=== PATIENT | female | born 1950 | race Caucasian/White ===

== ENCOUNTER 2016-10-02 14:57 | Emergency (ER) | payer BC, OTHER ==
[~2016-10-02] VITALS: Ht 154.9 cm; Wt 80.5 kg
[2016-10-02 15:00] VITALS: TEMP 36.7; Ht 154.9 cm; Wt 80.5 kg
[2016-10-02] MEDS ORDERED: HYDROCODONE/ACETAMOPHEN 5/325MG TAB PO STA (15:17)
[2016-10-02] MEDS ORDERED: ALG PO (15:36)
[2016-10-02] MEDS ORDERED: SYN150 PO (15:36)
[2016-10-02] MEDS ORDERED: TRAM-10 PO (15:36)
[2016-10-02] MEDS ORDERED: ESOM20CA PO (15:36)
[2016-10-02] MEDS ORDERED: AMLO-114 PO (15:36)
[2016-10-02] MEDS ORDERED: DICL-201 PO (15:36)
[2016-10-02] MEDS ORDERED: TRIA75TA53 PO (15:36)
--- NOTE | 2016-10-02 15:59 | EMERGENCY ROOM VISIT NOTE ---
ED Visit Note First contact with patient: 15:06 CHIEF COMPLAINT: knee pain HISTORY OF PRESENT ILLNESS: This 66-year-old female patient presents to the emergency department with her after sustaining an injury to the left knee. The patient denies any other injuries besides their knee. The patient reports mild swelling, denies any bruising. There is pain in the posterior and lateral aspect of the left knee. They rate the pain as aching/throbbing and 8/ 10. The patient states they are unable to walk on it due to pain, and any attempts to bear weight increase her pain. She is able to fully flex and extend the knee without pain. No numbness or tingling. No previous injuries to this knee, but she does note "bad arthritis" in both knees, and is in process of scheduling surgery for her right knee. No ankle, foot or hip pain. REVIEW OF SYSTEMS: A 6 system review of systems was completed with positives and pertinent negatives listed in the HPI. ALLERGIES: Penicillin MEDICATIONS: See chart PMH: See chart SOCIAL HISTORY: Denies tobacco, alcohol, recreational drugs. PHYSICAL EXAM: Vital Signs: Reviewed Nurse's notes, vital signs stable. GENERAL : Alert, no acute distress, well-developed, well-nourished. MENTAL STATUS: Alert, oriented to person place and time, and cooperative. MUSCULOSKELETAL: The left knee has an area of fullness and swelling in the posterior knee, tender to palpation. There is no ecchymosis. There is no joint effusion present. The patient is tender posterior and lateral knee. There is mild lateral joint line tenderness. The patella does not subluxate. Range of motion is normal. Strength of the quads and hamstrings is 5/5. Bronson's and Anterior Drawer tests are normal. There is no pain with varus and valgus stressing. The foot and toes are warm and well-perfused. Dorsalis pedis pulse 2+. Sensation to pain and light touch is intact. Capillary refill less than 2 seconds. IMAGING: LEFT KNEE 2 VIEWS HISTORY: left knee pain, eval injury/effusion COMPARISON: None. FINDINGS: There is no fracture or dislocation. Soft tissues are unremarkable. No radiopaque foreign bodies. No knee effusion. IMPRESSION: No fractures. LEFT LOWER EXTREMITY VENOUS DOPPLER HISTORY: left knee post pain, eval dvt, cyst COMPARISON STUDY: None. FINDINGS: There is normal compressibility, flow, and augmentation within the left lower extremity deep venous system. No evidence for a popliteal cyst. IMPRESSION: No DVT within the left lower extremity. EMERGENCY DEPARTMENT COURSE: I examined the patient. Differential diagnosis includes strain/sprain, ligamentous injury, Hein's cyst, DVT, less likely fracture or dislocation. The patient was given [place] tablet for pain. X-rays of the left knee were reviewed by myself and read by radiology and reveal no acute bony abnormality or soft tissue defect. Venous duplex of the left lower extremity negative for DVT, no evidence of cyst. The patient was placed in a knee immobilizer under my direction and the position was satisfactory. Patient had improved pain with immobilization and after [place]. The patient was instructed on the use of crutches. The patient was discharged home in good condition. Current/Historical Medications Scheduled Amlodipine (Norvasc), 10 MG PO QAM Bifidobacterium (Align), 4 MG PO QAM Diclofenac (Voltaren), 75 MG PO BID Esomeprazole Magnesium (Nexium), 20 MG PO QAM Levothyroxine Sodium (Synthroid), 150 MCG PO QAM Triamterene/Hctz (Maxzide 75MG/50MG), 1 TAB PO QAM Scheduled PRN Hydrocodone/Acetaminophen 5MG/325MG ([place] 5MG/325MG), 1-2 TABLET PO Q6H PRN for Pain Tramadol (Ultram), 50 MG PO Q8H PRN for Pain Allergies Coded Allergies: Penicillins (Verified Allergy, Unknown, ANAPHYLAXIS, 10/02/16) Vital Signs Date Time Temp Pulse Resp B/P Pulse Ox O2 Delivery O2 Flow Rate FiO2 10/02/16 18:07 76 20 153/88 96 10/02/16 15:00 36.7 84 20 162/83 99 Room Air Medications Administered Medications (Trade) Dose Ordered Sig/Romulo Route Start Time Stop Time Status Last Admin Dose Admin Acetaminophen/ Hydrocodone Bitart ([place] 5/325 Tab) 1 tab NOW STAT PO 10/02/16 15:17 10/02/16 15:19 DC 10/02/16 15:40 1 TAB Departure Information Impression Primary Impression: Posterior left knee pain Dispostion Home / Self-Care Condition GOOD Prescriptions Hydrocodone/Acetaminophen 5MG/325MG ([place] 5MG/325MG) Tab 1-2 TABLET PO Q6H Y for Pain for 3 Days, #24 TAB For Initial Treatment Prov: Aranza Nice CRNP 10/02/16 Referrals Wally Tracy M.D. (PCP) Patient Instructions My [facility] Additional Instructions Ice and elevate knee for swelling and pain. You may also try heat to the area after ice. Wear the knee immobilizer when up and about. Use crutches - minimal weight on foot. You may take Ibuprofen 600 mg or Tylenol 1000 mg every 8 hrs for pain. Do not take more than 3,000mg of Tylenol in a 24-hour period. [place] 1-2 tablet every 6 hrs for additional pain relief. Do not drink or drive while taking the [place], as it is a narcotic. Follow-up with your Orthopedist for further evaluation and treatment - call for appointment in the next week. Follow up with your family doctor or orthopedics if not improving in 5-7 days.
--- NOTE | 2016-10-02 16:06 | DIAGNOSTIC IMAGING REPORT ---
LEFT KNEE 2 VIEWS HISTORY: left knee pain, eval injury/effusion COMPARISON: None. FINDINGS: There is no fracture or dislocation. Soft tissues are unremarkable. No radiopaque foreign bodies. No knee effusion. IMPRESSION: No fractures. Electronically signed by: Jordi Parikh M.D. 10/02/2016 4:04 PM Dictated Date/Time: 10/02/2016 4:04 PM
--- NOTE | 2016-10-02 17:13 | DIAGNOSTIC IMAGING REPORT ---
LEFT LOWER EXTREMITY VENOUS DOPPLER HISTORY: left knee post pain, eval dvt, cyst COMPARISON STUDY: None. FINDINGS: There is normal compressibility, flow, and augmentation within the left lower extremity deep venous system. No evidence for a popliteal cyst. IMPRESSION: No DVT within the left lower extremity. Electronically signed by: Jordi Parikh M.D. 10/02/2016 5:12 PM Dictated Date/Time: 10/02/2016 5:11 PM
[2016-10-02] MEDS ORDERED: HYDR-5688 PO (17:23)
[2016-10-02 18:07] VITALS: BP 153/88; PULSE 76; O2SAT 96
[2016-12-05] MEDS ORDERED: SENNTAB23 PO (09:16)
[2016-12-05] MEDS ORDERED: ACET-1256 PO (09:16)
[2016-12-05] MEDS ORDERED: DIPH25CA5 PO (15:12)
[2016-12-17] MEDS ORDERED: ACET-24 PO (08:22)
[2016-12-17] MEDS ORDERED: RXC5 PO (08:22)
[2016-12-17] MEDS ORDERED: MORP-157 PO (08:22)
[2016-12-17] MEDS ORDERED: ASPEC325 PO (08:22)
== END 2016-10-02 18:09 | disposition home or self-care (01) ==
LOC: C.EDB 14:59 → C.EDD 18:09
DX: M25.562 Pain in left knee (principal); X58.XXXA Exposure to other specified factors, initial encounter; Z79.899 Other long term (current) drug therapy

== ENCOUNTER → 2016-10-11 | Outpatient (CLI) | payer BC ==
[~2016-10-11] MED LIST: ACET-1256 PO; ACET-24 PO; ALG PO; AMLO-114 PO; ASPEC325 PO; DICL-201 PO; DIPH25CA5 PO; ESOM20CA PO; MORP-157 PO; RXC5 PO; SENNTAB23 PO; SYN150 PO; TRAM-10 PO; TRIA75TA53 PO; voltaren
--- NOTE | 2016-10-11 16:40 | MAMMOGRAPHY REPORT ---
BILATERAL DIGITAL SCREENING MAMMOGRAM WITH CAD: 10/11/2016 CLINICAL HISTORY: Routine screening. Patient has no complaints. TECHNIQUE: Bilateral CC, MLO and CC nipple in profile views were obtained. Current study was also e valuated with a Computer Aided Detection (CAD) system. COMPARISON: Comparison is made to exams dated: 10/09/2015 mammogram, 10/07/2014 mammogram, 07/30/2013 mammogram, 07/10/2012 mammogram, 07/07/2011 mammogram, and 07/01/2010 mammogram - [facility]. BREAST COMPOSITION: The tissue of both breasts is almost entirely fatty. FINDINGS: There is a stable intramammary lymph node in the left upper outer posterior breast. No gray spicious mass, architectural distortion or cluster of microcalcifications is seen. IMPRESSION: ACR BI-RADS CATEGORY 1: NEGATIVE There is no mammographic evidence of malignancy. A 1 year screening mammogram is recommended. The p atient will receive written notification of the results. Approximately 10% of breast cancers are not detected with mammography. A negative mammographic repor t should not delay biopsy if a clinically suggestive mass is present. Ayala Ferguson M.D. ay/:10/11/2016 16:33:29 Jig Hand: Leanna PENA(Ezekiel)(Michelle)(BD), [facility] letter sent: Normal 1/2 BI-RADS Code: ACR BI-RADS Category 1: Negative
== END | disposition home or self-care (01) ==
LOC: C.MAMM 15:56
PROVIDERS: ATTEND Family Medicine
DX: Z12.31 Encounter for screening mammogram for malignant neoplasm of breast (principal)

== ENCOUNTER 2016-12-15 10:02 | Inpatient (IN) | payer BC, OTHER ==
[2016-12-05 08:50] VITALS: BMI 33.0
--- NOTE | 2016-12-05 09:28 | PAT Medication Instructions ---
Service Date Dec 05, 2016. Current Home Medication List Acetaminophen (Tylenol), 2 TAB PO Q4H PRN for Pain Amlodipine (Norvasc), 10 MG PO QAM Bifidobacterium (Align), 4 MG PO QAM Esomeprazole Magnesium (Nexium), 20 MG PO QAM Levothyroxine Sodium (Synthroid), 150 MCG PO QAM Sennosides-Docusate Sodium (Stool Softener), 1 TAB PO QAM Triamterene/Hctz (Maxzide 75MG/50MG), 1 TAB PO QAM Medication Instructions For Your Scheduled Surgery - Hold the following medications the morning of surgery: Sennosides-Docusate Sodium (Stool Softener), 1 TAB PO QAM Triamterene/Hctz (Maxzide 75MG/50MG), 1 TAB PO QAM Bifidobacterium (Align), 4 MG PO QAM - Take the following medications the morning of surgery with a sip of water OTHERWISE NOTHING TO EAT OR DRINK AFTER MIDNIGHT: Amlodipine (Norvasc), 10 MG PO QAM Esomeprazole Magnesium (Nexium), 20 MG PO QAM Levothyroxine Sodium (Synthroid), 150 MCG PO QAM Acetaminophen (Tylenol), 2 TAB PO Q4H PRN for Pain (may take if needed up to 4 hours prior to surgery) If you have any questions please call us at [phone] or [phone] or [phone]
[2016-12-05 10:03] LABS: BASO % 0.4 %; BASO ABS # 0.03 K/uL (0-0.2); COMPLETE YES; EOS % 6.8 %; HEMATOCRIT 41.8 % (37-47); IG% 0.4 %; LYMPH % 26.8 %; LYMPH ABS # 2.18 K/uL (1.2-3.4); MEAN CELL VOLUME 83.9 fL (80-100); MEAN CORPUSCULAR HEMOGLOBIN 28.5 pg (25-34); MEAN PLATELET VOLUME 10.1 fL (7.4-10.4); MONO % 9.1 %; NEUT % 56.5 %; PLATELET COUNT 250 K/uL (130-400); RED BLOOD COUNT 4.98 M/uL (4.2-5.4); WHITE BLOOD COUNT 8.14 K/uL (4.8-10.8)
--- NOTE | 2016-12-05 10:07 | DIAGNOSTIC IMAGING REPORT ---
CHEST PREADMISSION(PA/LAT) CLINICAL HISTORY: Preoperative chest COMPARISON STUDY: No previous studies for comparison. FINDINGS: The cardiac and mediastinal contours are normal. There is no evidence of focal pulmonary consolidation. There is no evidence of failure. No pleural effusions are visualized.[ IMPRESSION: No active disease in the chest. Electronically signed by: Per Ruggiero M.D. 12/05/2016 10:06 AM Dictated Date/Time: 12/05/2016 10:06 AM
[2016-12-05 10:19] LABS: PROTHROMBIN TIME (PATIENT) 10.5 SECONDS (9.0-12.0)
[2016-12-05 10:57] LABS: BUN/CREATININE RATIO 23.7 (10-20); CALCIUM 9.3 mg/dl (8.5-10.1); CREATININE 0.87 mg/dl (0.60-1.20)
--- NOTE | 2016-12-11 18:37 | HISTORY & PHYSICAL EXAMINATION ---
DATE OF ADMISSION: 12/15/2016 CHIEF COMPLAINT: Right knee pain and discomfort. 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 She has got a long history of bilateral knee pain and discomfort, right side greater than left. This dates back to several years ago. She has been followed by Dr. Knight, my partner. She has had injections in her knee which provided her with some temporary relief. It has become less successful over time. Pain has become more debilitating. The last shot has not helped as much. She takes Celebrex and Mobic at different times which have worked minimally recently. Now currently taking diclofenac. She now would like to proceed with surgical treatment. Her walking tolerance is limited. She has nighttime discomfort. PAST MEDICAL HISTORY: Include 1. Hypertension. 2. Elevated cholesterol. 3. Hypothyroidism. 4. Gastroesophageal reflux disease. 5. Mild obesity with a BMI of 33.5. 6. Low back pain. 7. Sciatica. PAST SURGICAL HISTORY: Include 1. Tubal ligation. 2. Tonsillectomy. 3. Thyroidectomy. 4. Right knee arthroscopy. 5. Cholecystectomy. ALLERGIES: PENICILLIN WHICH IS APPARENTLY A TRUE ANAPHYLACTIC REACTION. SHE DOES OKAY WITH KEFLEX, BUT MAYBE A QUESTION OF A RASH. CURRENT MEDICINES: Include 1. Voltaren twice a day. 2. Nexium once a day. 3. Stool softener. 4. Hydrochlorothiazide. 5. Amlodipine. 6. Synthroid. SOCIAL HISTORY: This 66?year-old white female patient from [place]. She is an RN. Medical doctor is Dr. Wally Tracy. FAMILY HISTORY: Noncontributory. REVIEW OF SYSTEMS: Negative for diabetes, neurologic problems, vascular problems, bleeding disorders. Denies any chest pain. No shortness of breath. No history of DVT or PE. PHYSICAL EXAMINATION: GENERAL: Shows a pleasant, middle-aged female. Looks to be in pretty good health. HEENT: Benign. NECK: Supple. No lymphadenopathy. LUNGS: Clear to auscultation. HEART: Has a regular rate and rhythm. ABDOMEN: Soft, nontender, nondistended. EXTREMITIES: Grossly neurovascularly intact except as follows: Examination of the right knee reveals the patient walks slight varus alignment to her knee. She has got a small varus thrust with weightbearing. She has got well-healed portal sites. A small knee effusion. She has got bony hypertrophy medially. Range of motion is 5-120. No instability. X-RAYS: X-rays of the right knee reviewed. She has advanced right knee DJD. She has got complete loss of her medial joint space. She has got some subchondral sclerosis and a little bit of tibial femoral subluxation. 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 Unresponsive to conservative treatment, and would like to have her right knee replaced. PLAN: We will take her to the operating room and do a right knee replacement. Risks and benefits of this procedure were explained to the patient including but not limited to DVT, PE, , infection, neurologic injury, vascular injury, bleeding problem, pain, limited range of motion, stiffness, failure to relieve her symptoms, incomplete relief of symptoms, need for further surgery in the future, fracture, leg length inequality, nerve palsy, etc. The patient understands and desires to proceed. Informed consent was obtained. The patient had preoperative workup which was negative. She knows to hold her Voltaren 10 days preop. She does have this REACTION TO PENICILLIN AND A LITTLE REACTION TO KEFLEX, will likely give her vancomycin preoperatively. As far as discharge plans, she is planning to be discharged to home using [facility] home health program. Her can assist in her care. AMBROSIO
[2016-12-15] VITALS (8 sets, daily range): BP systolic 129–165; BP diastolic 74–85; PULSE 69–85; TEMP 36.5–37; O2SAT 93–99; Ht 157.5 cm; Wt 83.0 kg
[~2016-12-15] VITALS: Ht 157.5 cm; Wt 83.0 kg
[~2016-12-15 10:02] MED LIST changes: -ACET-24 PO; +ACETAMINOPHEN 500 MG TAB PO SCH; -ASPEC325 PO; +BND25 PO; +BUPIVACAINE 0.25% 30 ML VIAL ONE; +BUPIVACAINE 0.5 % 5 MG/1 ML PF 10ML VIAL ONE; +BUPIVACAINE LIPOSOME 266 MG, BUPIVACAINE/EPINEPHRINE INJ 50 ML, SODIUM CHLORIDE 0.9% PF... INFIL SCH; -DICL-201 PO; -DIPH25CA5 PO; +FAMOTIDINE 20 MG TAB PO SCH; +GABAPENTIN 300 MG CAP PO SCH; +LACTATED RINGER'S 1000ML 1,000 ML IV SCH; +LACTATED RINGER'S 1000ML 500 ML IV ONE; +LACTATED RINGER'S 1000ML IV SCH; +METOCLOPRAMIDE HCL 10 MG TAB PO SCH; -MORP-157 PO; -RXC5 PO; +SCOPOLAMINE 1.5 MG TDSY TD SCH; -TRAM-10 PO; +TRANEXAMIC ACID INJ 1,000 MG in SODIUM CHLORIDE 0.9% 100ML 100 ML IV SCH; +VANCOMYCIN INJ 1,250 MG in SODIUM CHLORIDE 0.9% 250ML 250 ML IV SCH; -voltaren
[2016-12-15] MEDS ORDERED: voltaren (10:24)
--- NOTE | 2016-12-15 10:53 | History & Physical Bridge Note ---
H&P Re-Evaluation Bridge Note: I have examined the patient, reviewed the History & Physical and in the interval since the performance of the History & Physical I have noted the following changes of clinical significance: No changes noted
[2016-12-15] MEDS ORDERED: MIDAZOLAM HCL 1 MG/ML 2ML VIAL ONE ×2 (11:07→12:52)
[2016-12-15] MEDS ORDERED: FENTANYL CITRATE INJ 50 MCG/1 ML 2 ML VIAL ONE (11:07)
[2016-12-15] MEDS ORDERED: BACITRACIN 50000 UNIT VIAL ONE (11:54)
[2016-12-15] MEDS ORDERED: BUPIVACAINE/EPINEPHRINE 0.5% MPF 1:200,000 10 ML VIAL ONE (11:54)
[2016-12-15] MEDS ORDERED: BUPIVACAINE LIPOSOME 1/3% 266 MG/20 ML VIAL INFIL ONE (12:59)
[2016-12-15] MEDS ORDERED: BUPIVACAINE/EPINEPHRINE 0.25% 1:200,000 30 ML VIAL ONE (13:00)
[2016-12-15] MEDS ORDERED: SODIUM CHLORIDE 0.9% PF 50 ML VIAL ONE (13:02)
[2016-12-15] MEDS ORDERED: PROPOFOL IV EMULSION 10 MG/ML 20 ML VIAL IV ONE (13:55)
[2016-12-15] MEDS ORDERED: ONDANSETRON INJ 2 MG/ML 2 ML VIAL ONE (13:55)
[2016-12-15] MEDS ORDERED: LIDOCAINE HCL 2% 2 ML VIAL (20MG/ML) ONE (13:55)
[2016-12-15] MEDS ORDERED: GLYCOPYRROLATE INJ 0.2 MG/ML VIAL ONE (13:55)
[2016-12-15] MEDS ORDERED: DEXAMETHASONE SOD INJ 4 MG/ML VIAL ONE (13:55)
--- NOTE | 2016-12-15 14:33 | [facility] Post Operative Brief Note ---
Immediate Operative Summary Operative Date Dec 15, 2016. Pre-Operative Diagnosis Right knee degnerative joint disease Post-Operative Diagnosis same Procedure(s) Performed Right Total Knee Arthroplasty Surgeon Dr. Wes Bull Manager Coding Surgeon(s) Sameer Zuleta PA-C Estimated Blood Loss 50 ml Findings Right Knee DJD Fluids (cc crystalloids) 1600 cc Specimens a. right knee bone and tissue Drains None Anesthesia Spinal Complication(s) None Disposition Recovery Room / PACU
[2016-12-15] MEDS ORDERED: ALUMINUM/MAGNESIUM/SIMETH (MAALOX MAX) 30 ML UDC PO PRN (14:45)
[2016-12-15] MEDS ORDERED: ONDANSETRON INJ 2 MG/ML 2 ML VIAL IV PRN (14:45)
[2016-12-15] MEDS ORDERED: MAGNESIUM HYDROXIDE SUSP 30 ML UDC PO PRN (14:45)
[2016-12-15] MEDS ORDERED: METOCLOPRAMIDE HCL INJ 5 MG/ML 2 ML VIAL IV PRN (14:45)
[2016-12-15] MEDS ORDERED: BISACODYL 10 MG SUPP PR PRN (14:45)
[2016-12-15] MEDS ORDERED: SILVER SULFADIAZINE 1% CR 50 GM JAR EXT PRN (14:45)
[2016-12-15] MEDS ORDERED: ZOLPIDEM TARTRATE 5 MG TAB PO PRN (14:45)
--- NOTE | 2016-12-15 15:33 | Anesthesiology Progress Note ---
Anesthesia Post Op Note Date & Time Dec 15, 2016 at 15:33 Vital Signs Pain Intensity: 0 Vital Signs Past 12 Hours Date Time Temp Pulse Resp B/P (MAP) Pulse Ox O2 Delivery O2 Flow Rate FiO2 12/15/16 15:21 37 124/77 12/15/16 15:20 78 20 90 12/15/16 15:20 78 20 12/15/16 15:16 128/71 12/15/16 15:15 82 23 93 12/15/16 15:15 82 23 12/15/16 15:11 134/73 12/15/16 15:10 81 16 96 12/15/16 15:10 82 16 12/15/16 15:06 128/63 12/15/16 15:05 72 9 99 12/15/16 15:05 71 9 12/15/16 15:01 105/88 12/15/16 15:00 74 11 12/15/16 15:00 73 11 98 12/15/16 14:56 124/70 12/15/16 14:55 81 17 98 12/15/16 14:55 80 17 12/15/16 14:51 122/64 12/15/16 14:50 76 13 12/15/16 14:50 77 13 98 12/15/16 14:46 130/65 12/15/16 14:45 83 15 98 12/15/16 14:45 82 15 12/15/16 14:42 110/77 12/15/16 14:40 86 19 12/15/16 14:40 86 19 100 12/15/16 14:38 115/66 12/15/16 14:35 36.9 84 16 115/66 99 Mask 10 12/15/16 10:31 99 Room Air 12/15/16 10:30 36.5 76 18 165/76 Notes Mental Status: alert / awake / arousable, participated in evaluation Pt Amnestic to Procedure: Yes Nausea / Vomiting: adequately controlled Pain: adequately controlled Airway Patency, RR, SpO2: stable & adequate BP & HR: stable & adequate Hydration State: stable & adequate Anesthetic Complications: no major complications apparent
--- NOTE | 2016-12-15 15:33 | DIAGNOSTIC IMAGING REPORT ---
RIGHT KNEE 1 OR 2 VIEWS ROUTINE CLINICAL HISTORY: 66 years-old Female presenting with AP/LATERAL IN PACU RIGHT KNEE Right. TECHNIQUE: Frontal and lateral views of the right knee were obtained. COMPARISON: None. FINDINGS: Postsurgical findings of total right knee arthroplasty with patellar resurfacing. Expected soft tissue and intra-articular gas. Surgical drain in place grade Overlying skin lisset noted. No acute fracture or hardware complication. No malalignment. IMPRESSION: Expected postoperative findings status post total right knee arthroplasty with patellar resurfacing. Electronically signed by: Linus Reeder M.D. 12/15/2016 3:31 PM Dictated Date/Time: 12/15/2016 3:29 PM
[2016-12-15] MEDS: CHECK SCOPOLAMINE PATCH PLACEMENT SCH ×2 (16:00→23:17)
--- NOTE | 2016-12-15 16:06 | OPERATIVE REPORT ---
DATE OF OPERATION: 12/15/2016 SURGEON: Dr. Wes Bull. PHARMACY ASSISTANT: SUNIL Arredondo PREOPERATIVE DIAGNOSIS: Right knee degenerative joint disease. POSTOPERATIVE DIAGNOSIS: Same. PROCEDURE PERFORMED: Right cemented posterior stabilized total knee arthroplasty. COMPLICATIONS: None. ESTIMATED BLOOD LOSS: 50 mL. FLUID REPLACEMENT: 1600 mL crystalloid fluid replacement. ANESTHESIA: Spinal with adductor canal block. DRAINS: None. SPECIMENS: Right knee sent for pathology. TOURNIQUET TIME: 56 minutes at 300 mmHg. 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 She has been through extensive conservative treatment including knee arthroscopy in the past. The pain has been unresponsive to conservative management. X-rays showed advanced medial compartment DJD. The patient elected to proceed with operative treatment. OPERATIVE FINDINGS: Operative findings revealed advanced right knee DJD with grade 4 bone disease of the medial femoral condyle and medial tibial plateau. She had some fairly diffuse grade 4 changes in the patellofemoral joint as well. The lateral compartment was fairly well preserved. She had a flexion contracture of 10-15 degrees and a large knee joint effusion. OPERATIVE IMPLANTS: Operative implants consisted of: 1. A Biomet Vanguard size 65 right posterior stabilized femoral component. 2. A Biomet size 67 tibial tray. 3. A 10 mm posterior stabilized polyethylene insert. 4. A 31 x 8 all poly patella. OPERATIVE PROCEDURE: The patient taken to the operating room, identified and placed on the operating table in supine position. All contact areas were appropriately padded. IV antibiotics were provided by anesthesia team. A spinal anesthetic and adductor canal block had been provided in the holding area. Zambrano catheter was placed in sterile fashion. A right thigh tourniquet was then placed and the right lower extremity was then prepped and draped in the usual sterile fashion. The right leg was elevated and exsanguinated with Esmarch and tourniquet was placed at 300 mmHg. An anterior approach to the right knee was then performed through a longitudinal incision centered over the patella. Sharp dissection was carried through the subcutaneous tissues and down to the level of the extensor mechanism. A medial parapatellar arthrotomy incision was made. Some subperiosteal dissection was carried out medially. The fat pad was resected from beneath the patellar tendon. The lateral patellofemoral ligament was released. The patella was everted and knee was flexed. The osteophytes were taken off the distal femur. The ACL and PCL were then released from the distal femur and the tibia subluxated anteriorly. The external tibial alignment jig was then placed in the anterior face of the tibia and adjusted 14 mm medially. Proximal tibial cut was made to remove about 2 mm of bone from the most deficient aspect of the posteromedial tibial plateau. This did take a fairly large piece off laterally. The tibia was sized to a size 67. Attention was then drawn to the femur. The distal femur was entered with a sharp drill. Intramedullary canal was suctioned. A right 5 degree valgus cutting guide was placed. Distal femoral cutting block was pinned in place. Distal femoral cut was made to take an additional 3 mm of bone off the distal femur. The femur was then sized to a size 65. We did downsize this entire size to the very narrow medial/lateral dimensions of the femur. The AP cutting block was then pinned parallel to the epicondylar axis, which was 4 degrees of external rotation. The anterior cut, anterior chamfer, posterior cut, posterior chamfer cuts were made. Box cutting guide was placed and adjusted slightly laterally. The box cut was made. The knee was flexed. The remnants of the medial and lateral menisci were excised. The osteophytes were taken off the posterior aspect of the femur. Trial femoral component was placed. Tibial tray was pinned in maximum external rotation and drill and stem punch were used to create defect in proximal tibia for the tibial tray. The knee was then trialed. The 10 insert seemed just a little bit loose, but the 12, I felt was too tight, especially with her flexion contracture preoperatively so we did elect to use the 10 spacer. I wanted to leave the knee a little looser than too tight. Attention was then drawn to the patella. The patella was cleaned of all soft tissues. Patella thickness measured 23 mm, cut down to 14. It was sized to a size 31 patella. Lug holes were drilled for a 31 patella. Lateral osteophyte was removed. Patella button was placed. Knee was taken through range of motion and the patella tracked nicely with no thumbs test. Attention was then drawn toward placement of permanent components. All trial components were removed. A bone plug was placed in the distal femur to limit blood loss. A double batch of Palacos G cement was mixed. A right size 65 posterior stabilized femoral component, size 67 tibial tray, a 10 mm posterior stabilized polyethylene insert, and a 31 x 8 all poly patella then cemented in place. Knee was brought out into full extension until cement hardened. A final cement check was then performed. Pericapsular tissues were injected with a total of 100 mL of a combination of 20 mL of Exparel, 30 mL of normal saline, 50 mL of 0.25% Marcaine with epinephrine. The tourniquet was then let down for final tourniquet time of 56 minutes. Hemostasis was assured with use of electrocautery. The wound was once again irrigated. The extensor mechanism was then closed with a combination of #1 PDS suture and #1 Vicryl suture in a [id number] fashion. Extensor mechanism was checked and found to be intact. The subcutaneous tissues were then closed with 2-0 Dexon suture in a buried interrupted fashion. Skin was closed with skin lisset. The leg was then cleaned and dried and a sterile dressing of Xeroform, 4 x 4, sterile cast padding and Donell bandage were applied. The patient was then transferred to the recovery room in stable condition. The patient tolerated the procedure well with no complications. All needle and sponge counts were correct at the end of the operation. I attest to the content of the Intraoperative Record and any orders documented therein. Any exceptions are noted below. [facility]
[2016-12-15] MEDS: OXYCODONE HCL IR 5 MG TAB (IMMEDIATE RELEASE) PO PRN ×2 (17:08→21:09)
[2016-12-15] MEDS: D5W AND 1/2NSS + 20MEQ KCL 1,000 ML IV SCH (17:27)
[2016-12-15] MEDS: FERROUS GLUCONATE 324 MG TAB PO SCH (17:45)
[2016-12-15] MEDS: KETOROLAC TROMETHAMINE 15 MG/ML VIAL IV. SCH ×2 (17:47→23:17)
[2016-12-15] MEDS: HYDROmorphone INJ 0.5 MG/0.5 ML SYR IV PRN ×2 (17:48→19:52)
[2016-12-15] MEDS ORDERED: TRANEXAMIC ACID INJ 1,000 MG in SODIUM CHLORIDE 0.9% 100ML 100 ML IV SCH (21:00)
[2016-12-15] MEDS: TAPENTADOL ER 50 MG TABCR PO SCH (21:08)
[2016-12-15] MEDS: DOCUSATE SODIUM 100 MG CAP PO SCH (21:09)
[2016-12-15] MEDS: SENNA 8.6 MG TAB PO SCH (21:10)
[2016-12-15] MEDS: ASPIRIN 325 MG ECTAB PO SCH (21:10)
[2016-12-15] MEDS: ACETAMINOPHEN 500 MG TAB PO SCH (21:11)
[2016-12-16] MEDS ORDERED: VANCOMYCIN INJ 1,250 MG in SODIUM CHLORIDE 0.9% 250ML 250 ML IV SCH (01:00)
[2016-12-16] MEDS: D5W AND 1/2NSS + 20MEQ KCL 1,000 ML IV SCH ×2 (02:28→11:44)
[2016-12-16 03:34] VITALS: BP 126/73; PULSE 74; TEMP 36.9; O2SAT 95
[2016-12-16] MEDS: KETOROLAC TROMETHAMINE 15 MG/ML VIAL IV. SCH ×3 (05:31→18:24)
[2016-12-16] MEDS: LEVOTHYROXINE 150 MCG TAB PO SCH (05:31)
[2016-12-16] MEDS: ACETAMINOPHEN 500 MG TAB PO SCH ×3 (05:32→21:31)
[2016-12-16 05:45] LABS: MEAN CELL VOLUME 84.6 fL (80-100); MEAN CORPUSCULAR HEMOGLOBIN 28.4 pg (25-34); MEAN CORPUSCULAR HGB CONC 33.5 g/dl (32-36); PLATELET COUNT 206 K/uL (130-400); RED BLOOD COUNT 4.02 M/uL (4.2-5.4); WHITE BLOOD COUNT 13.07 K/uL (4.8-10.8)
[2016-12-16 06:09] LABS: BUN/CREATININE RATIO 20.3 (10-20); CREATININE 0.66 mg/dl (0.60-1.20); POTASSIUM 3.5 mmol/L (3.5-5.1)
[2016-12-16] MEDS: CHECK SCOPOLAMINE PATCH PLACEMENT SCH ×2 (07:34→16:00)
[2016-12-16 07:36] VITALS: BP 146/84; TEMP 36.8; O2SAT 96
--- NOTE | 2016-12-16 07:40 | PROGRESS NOTE ---
DATE: 12/16/2016 SUBJECTIVE: 66-year-old white female postop day #1 from right knee replacement. She is doing well. Pain is very well controlled. Had a good night's sleep. No chest pain or shortness of breath. Not feeling dizzy or lightheaded. OBJECTIVE: VITAL SIGNS: Temperature 36.9. Vital signs stable. PHYSICAL EXAMINATION: GENERAL: Reveals a healthy pleasant, middle-aged female. She is sitting up in bed and looks comfortable. She is dressed in her clothes and ready to go for the day. EXTREMITIES: Examination of the right leg reveals the dressing to be clean, dry and intact. She can dorsiflex and plantarflex her foot appropriately. She is neurologically intact. LABORATORY DATA: Hemoglobin 11.4, hematocrit 34.0. Electrolytes are stable. ASSESSMENT: 66-year-old female postop day 1 from right knee replacement, doing well. Pain is controlled. She is neurologically intact. PLAN: 1. DVT prophylaxis including thigh-high TEDs, SCDs, and aspirin twice a day. 2. PT/OT. Weightbearing as tolerated. Right total knee protocol. 3. Pain control, doing well with current pain regimen. 4. Disposition: Plan to discharge to home with some home health once adequately recovered.
--- NOTE | 2016-12-16 07:48 | Anesthesiology Progress Note ---
Anesthesia Post Op Note Date & Time Dec 16, 2016 at 07:47 Vital Signs Vital Signs Past 12 Hours Date Time Temp Pulse Resp B/P (MAP) Pulse Ox O2 Delivery O2 Flow Rate FiO2 12/16/16 07:36 36.8 16 146/84 (104) 96 Room Air 12/16/16 07:00 Room Air 12/16/16 03:34 36.9 74 16 126/73 (90) 95 Room Air 12/15/16 23:21 Room Air 10.0 12/15/16 23:13 36.9 74 16 139/76 (97) 94 Room Air Notes Mental Status: alert / awake / arousable, participated in evaluation Pt Amnestic to Procedure: Yes Nausea / Vomiting: adequately controlled Pain: adequately controlled Airway Patency, RR, SpO2: stable & adequate BP & HR: stable & adequate Hydration State: stable & adequate Neuraxial Anesthesia: sensory block resolved Anesthetic Complications: no major complications apparent
[2016-12-16] MEDS: FERROUS GLUCONATE 324 MG TAB PO SCH ×3 (08:23→18:24)
[2016-12-16] MEDS: DOCUSATE SODIUM 100 MG CAP PO SCH ×2 (08:24→21:13)
[2016-12-16] MEDS: DOCUSATE SODIUM/SENNA 50/8.6MG TAB PO SCH (08:24)
[2016-12-16] MEDS: MULTIVITAMIN TAB PO SCH (08:24)
[2016-12-16] MEDS: PANTOprazole SOD 40 MG TAB PO SCH (08:25)
[2016-12-16] MEDS: ASPIRIN 325 MG ECTAB PO SCH ×2 (08:25→21:13)
[2016-12-16] MEDS: AMLODIPINE BESYLATE 5 MG TAB PO SCH (08:25)
[2016-12-16] MEDS: TAPENTADOL ER 50 MG TABCR PO SCH ×2 (08:29→21:12)
[2016-12-16] MEDS: OXYCODONE HCL IR 5 MG TAB (IMMEDIATE RELEASE) PO PRN ×2 (08:29→18:32)
[2016-12-16] MEDS ORDERED: BIFIDOBACTERIUM PO SCH (09:00)
[2016-12-16] MEDS ORDERED: PANTOprazole SOD 40 MG TAB PO SCH (09:00)
[2016-12-16 10:13] VITALS: O2SAT 96
[2016-12-16 12:08] VITALS: BP 146/84; PULSE 68; TEMP 36.8; O2SAT 96
[2016-12-16 15:48] VITALS: BP 147/80; PULSE 78; TEMP 37
[2016-12-16] MEDS: HYDROmorphone INJ 0.5 MG/0.5 ML SYR IV PRN (19:40)
[2016-12-16] MEDS: SENNA 8.6 MG TAB PO SCH (21:31)
[2016-12-16 22:55] VITALS: BP 152/79; PULSE 81; TEMP 37.3; O2SAT 97
[2016-12-17] MEDS: CHECK SCOPOLAMINE PATCH PLACEMENT SCH
[2016-12-17] MEDS: KETOROLAC TROMETHAMINE 15 MG/ML VIAL IV. SCH ×2 (00:15→06:00)
[2016-12-17] MEDS: OXYCODONE HCL IR 5 MG TAB (IMMEDIATE RELEASE) PO PRN ×2 (02:33→07:53)
[2016-12-17] MEDS: ACETAMINOPHEN 500 MG TAB PO SCH (06:00)
[2016-12-17] MEDS: LEVOTHYROXINE 150 MCG TAB PO SCH (06:01)
[2016-12-17 06:08] VITALS: BP 173/89; PULSE 73; TEMP 37; O2SAT 97
[2016-12-17 06:35] VITALS: BP 142/81
[2016-12-17 07:35] VITALS: TEMP 37; O2SAT 97
[2016-12-17] MEDS: FERROUS GLUCONATE 324 MG TAB PO SCH (07:52)
[2016-12-17] MEDS: PANTOprazole SOD 40 MG TAB PO SCH (07:52)
[2016-12-17] MEDS: MULTIVITAMIN TAB PO SCH (07:52)
[2016-12-17] MEDS: AMLODIPINE BESYLATE 5 MG TAB PO SCH (07:53)
[2016-12-17] MEDS: DOCUSATE SODIUM/SENNA 50/8.6MG TAB PO SCH (07:53)
[2016-12-17] MEDS: TAPENTADOL ER 50 MG TABCR PO SCH (07:53)
[2016-12-17] MEDS: ASPIRIN 325 MG ECTAB PO SCH (08:17)
[2016-12-17] MEDS: DOCUSATE SODIUM 100 MG CAP PO SCH (08:17)
[2016-12-17] MEDS ORDERED: ACET-24 PO (08:22)
[2016-12-17] MEDS ORDERED: RXC5 PO (08:22)
[2016-12-17] MEDS ORDERED: ASPEC325 PO (08:22)
[2016-12-17] MEDS ORDERED: MORP-157 PO (08:22)
--- NOTE | 2016-12-17 08:24 | Discharge Instructions ---
Discharge Instructions Date of Service Dec 17, 2016. Admission Reason for Admission: Right Knee Degenerative Joint Disease Discharge Discharge Diagnosis / Problem: Right Knee Replacement Discharge Goals Goal(s): Decrease discomfort, Improve function, Increase independence, Improve disease control, Therapeutic intervention Activity Recommendations Activity Limitations: per Instructions/Follow-up section Weightbearing Status: Right weightbearing . Instructions / Follow-Up Instructions / Follow-Up ACTIVITY RECOMMENDATIONS: Physical Therapy: * You will go to physical therapy three times each week for four to six weeks after your surgery in order to regain your knee range of motion and to retrain your knee to work properly. * It is just as important to make sure you are getting your knee perfectly straight as it is to regain your knee bend. * Taking a pain pill an hour before therapy can help you have a more productive and comfortable therapy session. Home Exercise: * You were shown a series of exercises (heel props, heel slides, etc.) in the hospital. Do these exercises three to four times each day including the exercises you were shown in physical therapy. Walking: * Get up and walk several times each day. For the first four weeks, try not to stand or walk for more than one hour at a time. If you do stand or walk for more than one hour, you will not hurt anything, but your knee and leg will likely swell. * As you feel comfortable, you may change from the walker or crutches to a cane and then to independent walking. MEDICATIONS: New Medicine: * You will likely be taking one or more of these medications: 1. MS Contin - A long-acting pain medication. Take 1 tablet twice a day for the first ten days to decrease your baseline level of pain. 2. Oxycodone - A quick and shorter-acting pain medication. Take one to two tablets every four to six hours to lessen your pain. 3. Aspirin - Thins your blood to lessen the chance of forming a blood clot. * The most common side effects of pain medicine and iron are nausea and constipation. If nausea or constipation is too much of a problem or if you have any questions about your new medicines or doses, call [facility] at . We will try to help you manage these issues. VERY IMPORTANT TO READ AND REVIEW" Pain: * The immediate post-operative period after knee replacement surgery is often quite painful. * You are given a prescription for pain medicine. You should take it, as directed, when you need it, especially before physical therapy and before going to bed. Pain that interferes with sleep is very common and can last several months. * You will likely need pain medicine for the first four to six weeks. It will not stop all of the pain. The pain will lessen and as you feel better, you may change to milder pain medicine such as Tylenol. * The most common side effects of pain medicine are nausea and constipation, so don't take more than you need. SPECIAL CARE INSTRUCTIONS: TEDs/Elastic Stockings: * The white elastic stockings help limit swelling and prevent blood clots from forming in your legs. The more you wear them, the more they work. * Wear them for six weeks after knee replacement surgery and four weeks after partial knee replacement. Prevention of Infection: * Take antibiotics one hour before any dental cleaning, dental work, urological procedure, gastrointestinal procedure or any invasive surgery in order to prevent your new joint from getting infected. * You may get the antibiotics from the doctor performing the procedure or you may call our office at before and we will call in a prescription to the pharmacy of your choice. Things to Watch For: * Drainage from the incision site that occurs more than one week after your surgery. * Severely increased knee/leg pain or swelling. * Increased redness at the incision site. * Fever above 102 degrees Fahrenheit. * Unusual chest pain or shortness of breath. * Unusual pain or burning with urination. Call [facility] at with any of the above problems or if you have any questions about your medicines or recovery. FOLLOW UP VISIT: Make an appointment to see your doctor for approximately two weeks after surgery for a progress check and staple removal by calling the office at . Current Hospital Diet Patient's current hospital diet: Regular Diet Discharge Diet Recommended Diet: Regular Diet Procedures Procedures Performed: Right Total Knee Arthroplasty Pending Studies Studies pending at discharge: no Medical Emergencies . Who to Call and When: Medical Emergencies: If at any time you feel your situation is an emergency, please call [phone] immediately. . Non-Emergent Contact Non-Emergency issues call your: Surgeon . "Provider Documentation" section prepared by Wes Bull. . VTE Core Measure Inpt VTE Proph given/why not?: Other Anticoagulation, T.E.D. Stockings, SCD's
[2016-12-17 09:34] VITALS: BP 155/79; PULSE 79; O2SAT 97
--- NOTE | 2016-12-17 10:47 | PROGRESS NOTE ---
DATE: 12/17/2016 DATE: 12/17/2016 SUBJECTIVE: A 66-year-old white female postop day 2 from a knee replacement. She is doing pretty well. Pain is controlled. Therapy went reasonably well. She is a little bit more sore today than yesterday. No chest pain or shortness of breath. Not feeling dizzy or lightheaded. OBJECTIVE: VITAL SIGNS: Temperature 37.0. Vital signs stable. PHYSICAL EXAMINATION: GENERAL: Reveals a pleasant, middle-aged female. She is sitting up in bed and looks pretty comfortable. LUNGS: Clear to auscultation. HEART: Regular rate and rhythm. ABDOMEN: Soft, nontender, nondistended. EXTREMITY EXAMINATION: Grossly neurovascularly intact except as follows: Examination of the right knee reveals dressing to be clean, dry and intact. No significant drainage. Leg is well aligned. The patient can dorsiflex and plantarflex her foot appropriately. She is neurologically intact. ASSESSMENT: A 66-year-old white female postop day 2 from a right knee replacement, doing pretty well. Pain is controlled. She is neurologically intact. PLAN: 1. DVT prophylaxis including thigh-high TEDs, SCDs, and aspirin twice a day. 2. PT/OT. Weightbearing as tolerated. Right total knee protocol. 3. Pain control. Doing well with current pain regimen. 4. Disposition. Plan to discharge to home with some home health once adequately recovered.
--- NOTE | 2016-12-28 16:01 | DISCHARGE SUMMARY ---
ADMITTING PHYSICIAN AND SURGEON: Dr. Bull. ADMITTING DIAGNOSIS: Right knee degenerative joint disease. SURGERY PERFORMED: Right total knee. SECONDARY DIAGNOSES: Hypertension, elevated cholesterol, hypothyroidism, gastroesophageal reflux disease, mild obesity, low back pain, sciatica. CONSULTS: None obtained. HISTORY AND PHYSICAL EXAMINATION: Well documented in the patient's chart. HOSPITAL COURSE: The patient was admitted on 12/15/2016 underwent total knee arthroplasty, tolerated the procedure well. There were no complications. She was transferred to the PACU postoperatively and later to the orthopedic floor for further care. She was given vancomycin for antibiotic prophylaxis, AGUSTIN stockings, SCDs and aspirin for DVT prophylaxis. Hemoglobin, hematocrit and vital signs were monitored during her hospital stay and remained stable. She did not require any blood transfusions. There were no complications. By postoperative day 2, she was tolerating a general diet, pain was controlled with oral pain medicine. She was participating in physical therapy and had no signs or symptoms of deep vein thrombosis. On postop day 2, she was discharged home and set up with home health services. She was given printed discharge instructions including prescriptions for extra strength Tylenol, aspirin 325 mg b.i.d., oxycodone. Continue her home medicines. Continue physical therapy, weightbearing as tolerated, AGUSTIN stockings. Follow up in 10-12 days or sooner if any problems or concerns.
== END 2016-12-17 11:48 | disposition home health service (06) | DRG 470 ==
LOC: C.ACU 10:02 → C.3E 10:15 → ENRESERV 15:43
PROVIDERS: ADMIT Orthopaedic Surgery Sports Medicine; ATTEND Orthopaedic Surgery Sports Medicine
PROC: 0SRC0J9 Replacement of Right Knee Joint with Synthetic Substitute, Cemented, Open Approach (ICD-10-PCS; principal; 2016-12-15 12:15)
DX: M17.11 Unilateral primary osteoarthritis, right knee (principal); I10 Essential (primary) hypertension; E03.9 Hypothyroidism, unspecified; K21.9 Gastro-esophageal reflux disease without esophagitis; E66.9 Obesity, unspecified; Z68.33 Body mass index [BMI] 33.0-33.9, adult

== ENCOUNTER → 2017-10-12 | Outpatient (CLI) | payer BC ==
[~2017-10-12] MED LIST changes: +ACET-24 PO; -ACETAMINOPHEN 500 MG TAB PO SCH; +ASPEC325 PO; -BND25 PO; -BUPIVACAINE 0.25% 30 ML VIAL ONE; -BUPIVACAINE 0.5 % 5 MG/1 ML PF 10ML VIAL ONE; -BUPIVACAINE LIPOSOME 266 MG, BUPIVACAINE/EPINEPHRINE INJ 50 ML, SODIUM CHLORIDE 0.9% PF... INFIL SCH; +DIPH25CA5 PO; -FAMOTIDINE 20 MG TAB PO SCH; -GABAPENTIN 300 MG CAP PO SCH; -LACTATED RINGER'S 1000ML 1,000 ML IV SCH; -LACTATED RINGER'S 1000ML 500 ML IV ONE; -LACTATED RINGER'S 1000ML IV SCH; -METOCLOPRAMIDE HCL 10 MG TAB PO SCH; +RXC5 PO; -SCOPOLAMINE 1.5 MG TDSY TD SCH; -TRANEXAMIC ACID INJ 1,000 MG in SODIUM CHLORIDE 0.9% 100ML 100 ML IV SCH; -VANCOMYCIN INJ 1,250 MG in SODIUM CHLORIDE 0.9% 250ML 250 ML IV SCH; +voltaren
--- NOTE | 2017-10-13 15:18 | MAMMOGRAPHY REPORT ---
BILATERAL DIGITAL SCREENING MAMMOGRAM TOMOSYNTHESIS WITH CAD: 10/12/2017 CLINICAL HISTORY: Routine screening. Patient has no complaints. TECHNIQUE: Breast tomosynthesis in addition to standard 2D mammography was performed. Current study was also evaluated with a Computer Aided Detection (CAD) system. COMPARISON: Comparison is made to exams dated: 10/11/2016 mammogram, 10/09/2015 mammogram, 10/07/2014 m ammogram, 07/30/2013 mammogram, 07/10/2012 mammogram, and 07/07/2011 mammogram - [facility] enter. BREAST COMPOSITION: The tissue of both breasts is almost entirely fatty. FINDINGS: No suspicious masses, calcifications, or areas of architectural distortion are noted in ei ther breast. There has been no significant interval change compared to prior exams. IMPRESSION: ACR BI-RADS CATEGORY 1: NEGATIVE There is no mammographic evidence of malignancy. A 1 year screening mammogram is recommended. The pa tient will receive written notification of the results. Approximately 10% of breast cancers are not detected with mammography. A negative mammographic report should not delay biopsy if a clinically suggestive mass is present. Kiah Patel M.D. /:10/12/2017 16:46:56 Secretary Receptionist: Hattie PENA(Ezekiel)(M), [facility] letter sent: Normal 1/2 BI-RADS Code: ACR BI-RADS Category 1: Negative
== END | disposition home or self-care (01) ==
LOC: C.MAMM 15:58
PROVIDERS: ATTEND Family Medicine
DX: Z12.31 Encounter for screening mammogram for malignant neoplasm of breast (principal)

== ENCOUNTER 2025-03-13 06:36 | Observation (INO) ==
--- NOTE | 2025-03-05 09:16 | Anesthesiology Consultation ---
Date of Service March 05, 2025 Assessment & Plan (1) Encounter for pre-operative examination: - Infectious disease screening: Per assessment on 03/05/25- No known recent infectious disease contacts or current infectious disease symptoms. - Outpatient joint assessment: Pt currently scheduled for inpatient pathway. If surgeon requests review for outpatient joint pathway, patient is not a recommended candidate for outpatient joint program from anesthesia standpoint based on available information. - S/P Left reverse TSA (01/26/24): LMA#4 + regional at [facility]. No issues noted per post-op anesthesia progress note. - Pulmonary visit (07/08/24): "She plans to get right shoulder surgery.. She had x-ray done preopnormal.. She had PFT done todaynormal.. She has very rare use of rescue inhaler.. It appears she does have a mild persistent asthma component clinically.. Her shortness of breath is also seems to be improved with management of her arrhythmia.. After summer 2021 COVID infection she has long-haul symptoms of dyspnea.. Does not have symptoms of PE.. Multiple pulmonary nodules have been present for greater than 5 years and are all less than 6 to 8 mm in size and have not grown.. History of tuberculosis as a child for which she was treated.." - Awaiting most recent cardiology visit note ([facility] cardio/Dr. Alcaraz). Patient is otherwise acceptable risk for surgery pending evaluation DOS. Chart Review Chart Review: Patient NOT seen in Pre Admission Testing History Surgery Operation Date: 03/13/25 10:40 Proposed Procedures p Left Total Knee Arthroplasty - Wes Bull MD Height/Weight Height: 5 ft Weight: 79.832 kg Allergies Allergy/AdvReac Type Severity Reaction Status Date / Time Penicillins Allergy Severe Anaphylaxis Verified 03/05/25 09:14 fluvastatin AdvReac Severe Joint Pain Verified 03/05/25 07:29 rosuvastatin AdvReac Severe Joint Pain Verified 03/05/25 07:29 Medications Home Medications Medication Instructions Recorded Confirmed Last Taken aspirin 81 mg chewable tablet 81 mg PO QAM 12/02/20 03/05/25 01/19/24 (Aspirin Childrens) esomeprazole magnesium 20 mg 20 mg PO QAM 12/02/20 03/05/25 01/26/24 05:00 capsule,delayed release (Nexium) fluticasone furoate 200 1 inh inhalation QAM 12/02/20 03/05/25 01/26/24 05:00 mcg-vilanterol 25 mcg/dose inhalation powder (Breo Ellipta) levothyroxine 137 mcg capsule 137 mcg PO QAM 12/02/20 03/05/25 01/26/24 05:00 xisgzyctadzs-cqemzcii-hxagoz tablet 1 tab PO QAM 12/02/20 03/05/25 01/25/24 08:00 polyethylene glycol 3350 17 17 g PO DAILY 12/02/20 03/05/25 01/25/24 08:00 gram/dose oral powder (Miralax) pravastatin 20 mg tablet 20 mg PO QAM 12/02/20 03/05/25 01/26/24 05:00 triamterene 75 1 tab PO QAM 12/02/20 03/05/25 01/25/24 08:00 mg-hydrochlorothiazide 50 mg tablet (Maxzide) diltiazem HCl 360 mg 360 mg PO QA 05/08/23 03/05/25 01/26/24 05:00 capsule,extended release 24 hr flecainide 150 mg tablet 75 mg PO Q12H 05/08/23 03/05/25 01/26/24 05:00 losartan 50 mg tablet 50 mg PO BID 05/08/23 03/05/25 01/25/24 18:00 metoprolol succinate 25 mg 25 mg PO QA 12/11/23 03/05/25 01/26/24 05:00 tablet,extended release 24 hr acetaminophen 500 mg tablet 500 mg PO Q6H PRN Pain 03/05/25 03/05/25 Unknown albuterol sulfate 90 mcg/actuation 2 puff inhalation UD PRN asthma 03/05/25 03/05/25 Unknown aerosol inhaler cephalexin 500 mg capsule 500 mg PO UD PRN dental procedures 03/05/25 03/05/25 Unknown docusate sodium 100 mg capsule 300 - 400 mg PO DAILY 03/05/25 03/05/25 Unknown (Stool Softener) Past Medical History Medical History Asthma Stable per pt, only uses albuterol PRN r/t humidity Follows with [facility] Jan pulmonary/Dr. Pereyra Calcified granuloma of lung Follows at [facility] pulmonary Chronic back pain "stable" Claustrophobia Degenerative disc disease GERD (gastroesophageal reflux disease) History of COVID-19 (2020) Following black mold PNA in 2020 Patient currently follows with pulmonary [facility], hx glass opacity via CXR (per patient) that was scar tissue from having TB as a child (treated). Hx of tuberculosis Age 2, treated at the time No current issues Denies new or changed cough, shortness of breath, night sweats or unexplained weight loss. Hyperlipidemia Hypertension Hypothyroidism Osteoarthritis of left knee PVCs (premature ventricular contractions) Controlled with Flecainide Follows with Dr. Alcaraz/[facility] Tinnitus Had viral infection 04/2024 (which is when tinnitus started)- had unremarkable MRI evalulation/workup Past Family History Family History Other No family history of adverse response to anesthesia Past Surgical History Surgical History History of anesthesia reaction During last shoulder surgery 01/2024, patient reports "lost control of her bladder" x 24 hours, "had minimal b/l pleural effusions and felt as though was oversedated" had difficulty waking patient up on way home from surgery- felt possibly r/t versed- was also very nauseated Has concerns with this surgery as far as receiving anesthesia again (previously had never had a reaction) History of arthroplasty of both shoulders (2023) R/L History of bilateral tubal ligation (1979) History of bronchoscopy Early (r/t having TB as a child/believe she has scar tissue from TB) History of cardiac cath (2012) [facility], no stents History of carpal tunnel release Left History of cataract surgery R/L, wtih lens implants History of cholecystectomy History of colonoscopy History of thyroidectomy, subtotal Right partial removal d/t thyroid nodule History of tonsillectomy (1955) History of total abdominal hysterectomy and bilateral salpingo-oophorectomy (2021) Hx of esophagogastroduodenoscopy S/P bladder repair (2021) Bladder lift- during REX/BSO S/P total knee replacement (2018) Right Social History Smoking Status: Never smoker Do You Dip or Chew Tobacco: No Hx Alcohol Use: No Hx Substance Use: No substance use type: does not use Lab Results Anesthesia Preop Results Results Anesthesia Widget: WBC 9.08 K/ul (4.8-10.8) 02/20/25 Hgb 14.6 g/dl (12.0-16.0) 02/20/25 Hct 42.9 % (37.0-47.0) 02/20/25 Plt 239 K/uL (130-400) 02/20/25 Na 138 mmol/L (136-145) 02/20/25 K 3.9 mmol/L (3.5-5.1) 02/20/25 Cl 103 mmol/L (98-107) 02/20/25 CO2 28 mmol/L (21-32) 02/20/25 BUN 26 mg/dl (6-23) H 02/20/25 Creat 0.92 mg/dl (0.6-1.2) 02/20/25 Glucose Level 117 mg/dl (70-99(Fasting)) H 02/20/25 PT 10.4 Seconds (9.0-12.0) 02/20/25 PTT 27 Seconds (21-31) 02/20/25 INR 1.0 (0.9-1.1) 02/20/25 Blood Type O Positive 02/20/25 Antibody Screen NEGATIVE 02/20/25 Testing Electrocardiogram Date: 02/20/25 SB at 58bpm. iRBBB. No significant change compared to 05/16/2023 per information scientist comparison. Chest X-Ray Date: 02/20/25 FINDINGS: Stable small hiatal hernia. Heart size and pulmonary vasculature are normal. There are bilateral shoulder prostheses. No consolidation or pleural effusion. IMPRESSION: No acute findings. Echocardiogram Date: 11/08/21 EF 60-65% No LV regional wall motion abnormalities Grade I diastolic dysfunction No significant valvular pathology Stress Test Date: 04/10/20 Pharmacologic MPHR 55% No reversible or fixed ischemia Myocardial perfusion appears normal
--- NOTE | 2025-03-13 06:47 | History & Physical Bridge Note ---
Date of Service March 13, 2025 History & Physical Bridge Note I have examined the patient, reviewed the History & Physical and in the interval since the performance of the History & Physical I have noted the following changes of clinical significance: no changes noted
[2025-03-13] MEDS: FAMOTIDINE 20 MG TAB PO SCH (07:00)
[2025-03-13] MEDS: CeleBREX 200 MG CAP PO SCH (07:00)
[2025-03-13] MEDS: METOCLOPRAMIDE HCL 10 MG TABLET PO SCH (07:00)
[2025-03-13] MEDS: dexAMETHasone**PF** 10 MG/ML VIAL IV SCH (07:00)
[2025-03-13] MEDS: LR 500ML BOLUS, THEN 15ML/HR IV SCH (07:00)
[2025-03-13] MEDS: LR 60ML/HR IV SCH (07:00)
[2025-03-13] MEDS: ACETAMINOPHEN 500 MG TAB PO SCH ×2 (07:00→13:34)
[2025-03-13] MEDS ORDERED: ROPIVACAINE 0.5% 5 MG/ML 30 ML VIAL ONE (07:04)
[2025-03-13] MEDS ORDERED: BUPIVACAINE 0.5 % 5 MG/1 ML PF 10ML VIAL ONE (07:04)
[2025-03-13] MEDS ORDERED: PROPOFOL IV EMULSION 10 MG/ML 20 ML VIAL IV ONE ×2 (07:46)
[2025-03-13] MEDS ORDERED: MIDAZOLAM HCL 1 MG/ML 2ML VIAL ONE (07:46)
[2025-03-13] MEDS ORDERED: LIDOCAINE 2% 2 ML VIAL/AMP(20MG/ML) INFIL ONE (07:46)
[2025-03-13] MEDS ORDERED: ONDANSETRON INJ 2 MG/ML 2 ML VIAL IV PRN ×2 (08:10→13:21)
[2025-03-13] MEDS ORDERED: ATROPINE SULFATE 0.1 MG/ML 10ML SYR IV PRN (08:10)
[2025-03-13] MEDS ORDERED: Nursing to Pharmacy Communication SCH (08:15)
[2025-03-13] MEDS ORDERED: ONDANSETRON INJ 2 MG/ML 2 ML VIAL ONE (09:43)
[2025-03-13] MEDS: ORTHO JOINT ANESTHETIC ONE (09:56)
[2025-03-13] MEDS: ROPIV 0.5% 246mg, Ketorolac 30mg, EPINEPHrine 0.5mg in NSS INFIL SCH (09:56)
--- NOTE | 2025-03-13 11:18 | Operative Report ---
PG Post Operative Report Pre & Post Diagnosis Operation Date: 03/13/25 08:50 Pre-Op Diagnosis: Left Knee Osteoarthritis Post-Op Diagnosis: Left Knee Osteoarthritis I identified the patient and participated in the time-out.: Yes Procedure Operation Date: 03/13/25 08:50 Actual Procedures p Left Total Knee Arthroplasty(Left) - Wes Bull MD Surgeon Wes Bull MD Bowling Ball Marker Lázaro Phelan PA-C Estimated Blood Loss 50 Findings Consistent with Post-Op Diagnosis Specimens Left knee sent for pathology Anesthesia Type Spinal MAC Complications none Disposition Accompanied Patient To Recovery: No Indications Patient is a 74-year-old female has a history of multiple orthopedic joint problems and issues and status post multiple replacements. She had her right right knee replaced in the past. Over the past several years she developed increased pain discomfort in her left knee. X-rays show advanced left knee arthritis. She elected proceed with left total knee arthroplasty. Description of Procedure Operative implants consist of: 1 Biomet Vanguard size 62.5 left posterior stabilized femoral component. 2. Biomet size 67 tibial tray. 3. 10 mm posterior stabilized polyethylene insert. 4. 31 x 8 all poly patella. The patient was taken to the op room, identified, placed on the operating table in the supine position. All contact areas were appropriately padded. IV antib iotics were provided by anesthesia team. A spinal anesthetic had been implemented holding area. Zambrano catheter was placed in sterile fashion. A left IJ was then placed. Left lower extremity was then prepped and draped in usual sterile fashion. The left leg was elevated exsanguinated with use of an Esmarch and a tourniquet placed at 300 mmHg. An anterior approach to the left knee was then performed through a longitudinal incision centered over the patella. Sharp dissection was Through subcutaneous tissue down the extensor mechanism. A medial parapatellar arthrotomy incision was made. Some subperiosteal dissection was carried out medially. The fat pad was resected from the patella tendon. The lateral patellofemoral ligament was released. Patella subluxated laterally knee was flexed. The osteophytes taken off distal femur. The ACL and PCL were then released from the distal femur and the tibia subluxated anteriorly. The external tibial LYMErix then placed in the anterior face of the tibia and adjusted 14 mm medially. The proximal tibial cut was made essentially flush with the most deficient aspect medial tibial plateau. Some osteophytes taken off medially. The tibia was sized to a size 67. Attention drawn the femur. The distal femur was entered with a sharp drill. Intramedullary canal was suction. A left 5 degree valgus cutting guide was placed. The distal femoral cutting block was pinned in place. This femoral cut was made take an additional 3 mm of bone off distal femur. The femur was then sized to a size 62.5. The AP cutting block was pinned parallel to the epicondylar axis which was 4 degrees of external rotation. The anterior cut, anterior chamfer, posterior cut, posterior chamfer cuts were made. The box cutting guide was placed and just slightly lateral and the box cut was made. The knee was flexed. The remnants of the medial and lateral menisci were excised. The osteophytes were taken off the posterior aspect of femur. A trial femoral component was placed. The tibial tray was then pinned in Yael external rotation and the drill and stem punch used. The defect in proximal tibia for the tibial tray. The knee was then trialed and the 10 mm insert fit most appropriately. Attention drawn the patella. The patella was cleaned of all soft tissue. Patella thickness measured 22 mm in thickness was cut down to 13. Was sized to a size 31 patella. The lug holes were drilled for 31 patella. The lateral osteophyte was removed. Patella button was placed. Knee was taken through range of motion patella tracked nicely with no thumbs test. Attention then drawn to place the permanent components. All trial components were removed. Bone plug was placed into distal femoral mL blood loss. A double batch Palacos G cement was mixed. Biomet Vanguard size 62.5 left posterior stabilized femoral component, a size 67 tibial tray, a 10 mm Po stabilized polyethylene insert, and a 31 x 8 all poly patella then cemented in place. The knee was brought out into full extension till cement hardened. Final cement check was then performed. Pericapsular tissues were injected with a total of 100 cc of Ortho mix. The patient did receive 1 g tranexamic acid. The tourniquet was then let down for final tourniquet time of 59 minutes. Hemostasis surgery was electrocautery. The wound was once again irrigated and the extensor mechanism then closed with combination of #1 PDS suture #1 Vicryl suture in a [id number]-kfvav fashion. Extensor Meclomen checked found to be intact. Subcutaneous tissue then closed with 2 Dexon suture in a buried interrupted fashion skin was closed skin lisset. Leg was then cleaned and dried and a sterile dressing with Xeroform, 4 fours, sterile cast padding, Donell bandage were applied. The patient was then transferred to the recovery room in stable condition. Patient tolerated procedure well and there were no complications. Lázaro Phelan, my physician oceanographer assistant, was present for the entire procedure. His assistance was required for proper patient positioning, prepping and draping, surgical exposure, retraction, performed the technical details of the operation, closure of the incision site, and placement of the postoperative sterile dressing and bandage. I attest to the content of the Intraoperative Record and any orders documented therein. Any exceptions are noted below.
--- NOTE | 2025-03-13 11:31 | XRay Report ---
XR knee LT 1 or 2V routine CLINICAL HISTORY: Surgical Post Op COMPARISON: None FINDINGS: There are postsurgical changes of a total left knee arthroplasty and patellar resurfacing. There are overlying skin lisset. There is gas present within the soft tissues consistent with recen t surgery. IMPRESSION: Postsurgical changes of a total left knee arthroplasty. ACT 112: Negative or not required by law. Electronically signed by: Per Ruggiero M.D. 03/13/2025 11:30 AM
--- NOTE | 2025-03-13 12:19 | Anesthesiology Progress Note ---
Date of Service March 13, 2025 Anesthesia Post Procedure Vital Signs Vital Signs: Temp Pulse Resp BP BP Pulse Ox O2 Del Method 03/13/25 12:05 97.7 F 62 14 128/68 99 Room Air 03/13/25 11:55 62 16 133/60 98 Room Air 03/13/25 11:45 63 14 134/65 92 Room Air 03/13/25 11:35 64 16 135/59 L 98 Room Air 03/13/25 11:25 66 16 140/63 99 Oxymask 03/13/25 11:13 97.2 F L 66 14 141/61 H 98 Oxymask 03/13/25 07:09 97.9 F 58 L 24 188/77 H 195/92 H 97 Room Air O2 Flow Rate 03/13/25 12:05 03/13/25 11:55 03/13/25 11:45 03/13/25 11:35 03/13/25 11:25 3 03/13/25 11:13 6 03/13/25 07:09 Pain Intensity Left Knee: Pain Intensity: 8 Transfer of Care Handoff Completed per policy Notes Mental Status: alert / awake / arousable and participated in evaluation Patient Amnestic to Procedure: Yes Nausea / Vomiting: adequately controlled Pain: adequately controlled Airway Patency, RR, SpO2: stable & adequate BP & HR: stable & adequate Hydration State: stable & adequate Neuraxial Anesthesia: was administered and sensory block is resolving Anesthetic Complications: no major complications apparent and Pt Satisfied with anesthetic care
[2025-03-13] MEDS ORDERED: ALBUTEROL HFA 8 GM INHALER INH PRN (13:21)
[2025-03-13] MEDS ORDERED: METOCLOPRAMIDE HCL INJ 5 MG/ML 2 ML VIAL IV PRN (13:21)
[2025-03-13] MEDS ORDERED: NALOXONE HCL 0.4 MG/1 ML VIAL/CARP IV PRN (13:21)
[2025-03-13] MEDS ORDERED: ALUMINUM/MAGNESIUM SUSP 30 ML UDC PO PRN (13:21)
[2025-03-13] MEDS ORDERED: MAGNESIUM HYDROXIDE SUSP 30 ML UDC PO PRN (13:21)
[2025-03-13] MEDS ORDERED: HYDROmorphone INJ 0.5 MG/0.5 ML SYR IV PRN (13:21)
[2025-03-13] MEDS: SODIUM CHLORIDE 0.9% 1,000 ML IV SCH (13:29)
[2025-03-13] MEDS: KETOROLAC TROMETHAMINE 15 MG/ML VIAL IV SCH (13:37)
[2025-03-13] MEDS: ASCORBIC ACID 500 MG TAB PO SCH (15:59)
[2025-03-13] MEDS: TRANEXAMIC ACID / 0.7% NACL 1,000 MG/100 ML BAG IV SCH (16:07)
[2025-03-13] MEDS ORDERED: SENNA 8.6 MG TAB PO SCH (21:00)
[2025-03-13] MEDS: DOCUSATE SODIUM 100 MG CAP PO SCH (21:21)
[2025-03-13] MEDS: SENNA 8.6 MG TAB PO SCH (21:21)
[2025-03-13] MEDS: FLECAINIDE ACETATE 100 MG TABLET PO SCH (21:21)
[2025-03-13] MEDS: ASPIRIN 81 MG ECTAB PO SCH (21:22)
[2025-03-13] MEDS: LOSARTAN POTASSIUM 50 MG TAB PO SCH (21:22)
[2025-03-14] MEDS: LEVOTHYROXINE SODIUM 137 MCG TABLET PO SCH (05:59)
[2025-03-14] MEDS: MULTIVITAMIN TAB PO SCH (07:44)
[2025-03-14] MEDS: TRIAMTERENE/HCTZ 37.5/25MG TAB PO SCH (07:45)
[2025-03-14] MEDS: METOPROLOL SUCC 25MG EXT REL TAB PO SCH (07:45)
[2025-03-14] MEDS: PRAVASTATIN SOD 20 MG TAB PO SCH (07:45)
[2025-03-14] MEDS: POLYETHYLENE (MIRALAX) 17 GM PACK PO SCH (07:46)
[2025-03-14] MEDS: dexAMETHasone 10 MG in SYRINGE 0 ML IV SCH (07:46)
[2025-03-14] MEDS: CEROVITE ADV FORMULA TAB PO SCH (07:46)
[2025-03-14] MEDS: POLYETHYLENE (MIRALAX) 17 GM PACK ONE (07:47)
--- NOTE | 2025-03-14 08:32 | Orthopedic Progress Note ---
Date of Service March 14, 2025 Assessment & Plan (1) Status post total left knee replacement: * Continue Current Treatment * Disposition: home with home therapy * Daily treatment: Physical Therapy/ Occupational Therapy per protocol * Weight bearing status: Full WBAT * Continue to monitor for ABLA * Pain control * DVT prophylaxis, ASA * Office/hospital f/u 2 weeks for progress check and staple/suture removal * Plan for discharge today pending PT/OT clearance Subjective Active Problems: S/p left total knee arthroplasty POD 1 74 y/o female s/p left total knee arthroplasty with Dr. Bull. Doing well overall, pain managed and improved function. Denies fever/chills, chest pain/SOB, nausea/vomiting. Otherwise no complaints and no pain. Review of Systems All systems reviewed & are unremarkable except as noted in HPI & below. Physical Exam * General: Alert and oriented, no acute distress * Constitutional: well-developed, well-nourished. * Respiratory: Normal respiratory effort, no distress * Gastrointestinal: No tenderness to palpation, no rigidity or guarding. * Skin: No rash or lesion. * Neurologic: Grossly normal * Musculoskeletal: Left knee surgical dressing clean, dry and in place, not removed for exam. Otherwise no obvious deformity or overlying skin changes RLE. Diffuse TTP distal thigh and knee region. Otherwise no specific tender ness of proximal thigh, lower leg, foot/ankle. AROM knee flexion 80 degrees. AROM foot/ankle intact. Sensation intact plantar/dorsal foot. Brisk capillary refill. . Results & Data Results & Data Laboratory Results Laboratory Results - last 24 hr 03/13/25 06:50 Blood Type O Positive Antibody Screen NEGATIVE . Diagnostic Findings . Knee X-Ray 03/13/25 11:11 XR knee LT 1 or 2V routine CLINICAL HISTORY: Surgical Post Op COMPARISON: None FINDINGS: There are postsurgical changes of a total left knee arthroplasty and patellar resurfacing. There are overlying skin lisset. There is gas present within the soft tissues consistent with recent surgery. IMPRESSION: Postsurgical changes of a total left knee arthroplasty. ACT 112: Negative or not required by law. Electronically signed by: Per Ruggiero M.D. 03/13/2025 11:30 AM PG Care Time/CCT Total # of Minutes Spent Total Time Spent with Patient: Total time spent is greater than 50% in coordination of care (as documented) at patient's floor/unit and/or counseling patient: Coding Level of Care Code 65787 Post Operative Follow-Up Diagnoses Status post total left knee replacement Z96.652
[2025-03-14] MEDS: FLUTICASONE/VILANTEROL 200/25MCG 14 PUFFS/INHALER INH SCH (10:14)
== END 2025-03-14 10:46 | disposition home health service (06) ==
LOC: ASU 06:36 → 3E 06:36

== ENCOUNTER 2025-04-09 12:16 | Inpatient (IN) ==
--- NOTE | 2025-04-09 13:35 | Emergency Department Note ---
Impression & Plan Status post knee replacement, Hypokalemia, KEVAN (acute kidney injury), Hyponatremia, Elevated procalcitonin ED Provider Note NAME: BUDDY HARRISON AGE: 74 SEX: F : 1950 ARRIVES VIA: Walk-In INFORMANT: The patient herself. ED PROVIDER(S): Joann Phelan PA-C, [Lita Moreno MD] CHIEF COMPLAINT: DrAddis Mosley, IV fluids, rational need HISTORY OF PRESENTING ILLNESS: The patient is a 74-year-old female with a [facility] left total knee replacement by Dr. Bull on 03/13, almost 1 month ago, who presents to the emergency department after being evaluated by her primary care provider today. She reports of flulike symptoms that began 5 days ago where she was experiencing chills and sweats. Yesterday she developed a rash on her left lower extremity that stretches from her left hip down to her toes. The area is warm and red. She reports a small amount of tenderness in the posterior aspect of her knee/calf. She denies a fever, vomiting, chest pain, shortness of breath, abdominal pain, pain in the left knee, or sign of infection around the incision site prior to rash. Labs were obtained at the primary care office and reports that the patient's sodium is low. Patient denies history of blood clots. She is on baby aspirin. She was referred here. REVIEW OF SYSTEMS: See HPI for pertinent positives and pertinent negatives. ALLERGIES: Penicillin, fluvastatin, rosuvastatin MEDICATIONS: See below PAST MEDICAL HISTORY: See below PHYSICAL EXAM: VITALS: Vitals are noted on the nurses note and reviewed by myself. Vital signs stable. GENERAL: 74-year-old female, in no acute distress, nondiaphoretic, well- developed well-nourished. SKIN: Capillary refill less than 2 seconds. The entirety of the left lower extremity is erythematous, maculopapular blanching rash, the area is nontender. The rash is along the anterior lateral aspect of the leg and less on the posterior aspect. No blisters or ulcerations. Healing incision site without dehiscence. No purulent drainage. HEENT: Normocephalic. PERRLA. EOMI. Nares patent. Mucous membranes moist. Neck is supple without nuchal rigidity. HEART: Regular rate and rhythm without murmurs gallops or rubs. LUNGS: CTA BL without wheezes, rales or rhonchi. No retractions or accessory muscle use. ABDOMEN: Soft, nontender, without masses or organomegaly. No guarding or rebound tenderness. MUSCULOSKELETAL: Left knee full range of motion. No joint effusion. No pedal edema. No calf tenderness. NEURO: Patient was alert and oriented to person place and time. No focal neurological deficits. DIFFERENTIAL DIAGNOSIS: Cellulitis, erysipelas, allergic reaction, contact dermatitis, irritant dermatitis, viral exanthem, postop infection, septic joint, among others. ED COURSE AND MEDICAL DECISION MAKING: MEDICATIONS GIVEN: Normal saline 500 ml, potassium chloride 10 meq PO, potassium chloride 10 IV MONITOR: Continuous cardiac exercise specialist: Order was placed for continuous cardiac exercise specialist. Patient was placed on the cardiac exercise specialist and continuous pulse ox. Patient was noted to be in normal sinus rhythm at an initial rate of 70 bpm per my interpretation. EKG: EKG was interpreted by myself as sinus rhythm with first-degree AV block. NM interval 210 ms. Incomplete right bundle branch block noted on previous EKGs. No ST or T wave abnormality. No significant change when compared to previous EKG from 02/20/2025. INTERPRETATION OF LABS: I interpreted the labs with full lab results as below in the lab section of this note. Pertinent lab results discussed in the MDM section below. INTERPRETATION OF IMAGING: I informally interpreted the patient's chest x-ray which does not show any obvious pneumothorax or consolidation and reviewed the formal report. ESCALATION OF CARE CONSIDERED: Escalation of care was considered as the patient presents post left total knee replacement, redness along the entirety of her left lower extremity, chills, and overall not feeling well. Workup shows hyponatremia, hypokalemia, KEVAN, and elevated procalcitonin. Patient was admitted for further management and treatment. CONSULTATIONS: [facility] - Dr. Bull - Presented the patient to the provider and patient's presentation in the ER. Symptoms are not consistent with septic joint however due to recent left total knee repair within 30 days wanted to keep the provider involved in the patient's care. The patient was admitted to medicine for other reasons however he does agree to evaluate the patient in the morning. On-call [facility] - Presented the patient to the provider and workup including hyponatremia, hypokalemia, KEVAN, elevated procalcitonin, and rash on the left lower extremity 1 month postop total left knee. We discussed my conversation with the orthopedic surgeon Dr. Bull who performed the surgery 1 month ago. They agreed to evaluate the patient and admitting to medicine for further workup and treatment plan. MDM SUMMARY: I evaluated this 74-year-old female presents emergency department due to a rash along the entirety of her left lower extremity approximately 1 month after a left total knee replacement and low sodium on primary care blood work. See HPI and PE above. Patient's vitals stable. Patient is well and nontoxic-appearing. She is not tachycardic or hypoxic. On exam the entirety of the left lower extremity is erythematous and blanching. Differential includes cellulitis, erysipelas, postop infection, allergic reaction. Patient reports having no redness or issues prior and is almost 1 month postop. Exam is not consistent with septic joint. Labs obtained showing no leukocytosis. Hemodynamically stable. Hyponatremia 130. Hypokalemia 3.0. KEVAN. BUN elevated 38. Creatinine elevated 1.44. Lactate 1.0. Normal LFTs. Procalcitonin elevated 2.28. All labs reviewed with the patient. Patient was given 500 mL normal saline, potassium chloride 10 meq PO, and potassium chloride 2 bags. Antibiotics were deferred until my conversation with orthopedic provider and hospitalist. An ultrasound of the left lower extremity was obtained showing no DVT. Chest x-ray shows peribronchial cuffing that may be due to bronchiolitis. No other findings. Patient denies any other upper respiratory symptoms. Consultation with on-call orthopedic and hospitalist can be seen in detail above. Hospitalist agreed to admitting the patient to medicine for further workup and management. Patient is agreeable to the treatment plan and all questions answered. The patient was admitted in stable condition. DIAGNOSIS: Status post knee replacement, hypokalemia, KEVAN, hyponatremia, elevated procalcitonin The chart was completed utilizing [employer] voice recognition software. Grammatical errors, random word insertions, pronoun errors, and incomplete sentences are an occasional consequence of this system due to software limitations, ambient noise, and hardware issues. Any formal questions or concerns about the content, text, or information contained within the body of this dictation should be directly addressed to the provider for clarification. TREATMENT PLAN/DISCHARGE INSTRUCTIONS: The patient was admitted to medicine. See the note for further workup and management in detail. Past Med/Surg History Problem List Elevated procalcitonin (Acute) Hyponatremia (Acute) KEVAN (acute kidney injury) (Acute) Hypokalemia (Acute) Status post knee replacement (Acute) Status post left knee replacement Hyponatremia with decreased serum osmolality Hypokalemia Acute kidney injury Cellulitis of left lower extremity Rigors Hypertension Hyperlipidemia Hypothyroidism GERD (gastroesophageal reflux disease) Calcified granuloma of lung Follows at [facility] [place] pulmonary Degenerative disc disease PVCs (premature ventricular contractions) Controlled with Flecainide Follows with Dr. Alcaraz/[facility] [place] Medical History Osteoarthritis of left shoulder Osteoarthritis of left knee Tinnitus Had viral infection 04/2024 (which is when tinnitus started)- had unremarkable MRI evalulation/workup Claustrophobia Osteoarthritis of left knee Asthma Stable per pt, only uses albuterol PRN r/t humidity Follows with [facility] [place] pulmonary/Dr. Pereyra Hx of tuberculosis Age 2, treated at the time No current issues Denies new or changed cough, shortness of breath, night sweats or unexplained weight loss. History of COVID-19 (2020) Following black mold PNA in 2020 Patient currently follows with pulmonary [facility] [place], hx glass opacity via CXR (per patient) that was scar tissue from having TB as a child (treated). Surgical History Hx of esophagogastroduodenoscopy History of anesthesia reaction During last shoulder surgery 01/2024, patient reports "lost control of her bladder" x 24 hours, "had minimal b/l pleural effusions and felt as though was oversedated" had difficulty waking patient up on way home from surgery- felt possibly r/t versed- was also very nauseated Has concerns with this surgery as far as receiving anesthesia again (previously had never had a reaction) History of arthroplasty of both shoulders (2023) R/L History of total abdominal hysterectomy and bilateral salpingo-oophorectomy (2021) History of bilateral tubal ligation (1979) History of carpal tunnel release Left S/P total knee replacement (2019) Right History of thyroidectomy, subtotal Right partial removal d/t thyroid nodule History of bronchoscopy Early (r/t having TB as a child/believe she has scar tissue from TB) History of colonoscopy History of cholecystectomy History of tonsillectomy (1955) History of cataract surgery R/L, wtih lens implants History of cardiac cath (2012) [facility] [place], no stents S/P bladder repair (2021) Bladder lift- during REX/BSO Family History Other No family history of adverse response to anesthesia Social History Smoking Status: Never smoker Second Hand Exposure: No; Do You Dip or Chew Tobacco: No; Hx Alcohol Use: No Hx Substance Use: No Preferred Language: Lebanese Communication Ability: Effective Consulting Database Administrator Required: No Beliefs That Will Affect Care: None Current Living Situation: Spouse Feels Safe at Home: Yes Assistive Devices: Cane and Walker Allergies Allergies Allergy/AdvReac Type Severity Reaction Status Date / Time Penicillins Allergy Severe Anaphylaxis Verified 03/13/25 06:53 fluvastatin AdvReac Severe Joint Pain Verified 03/13/25 06:53 rosuvastatin AdvReac Severe Joint Pain Verified 03/13/25 06:53 Home Meds Home Medications Medication Instructions Recorded Confirmed esomeprazole magnesium 20 mg 20 mg PO DAILYBB 12/02/20 04/09/25 capsule,delayed release (Nexium) fluticasone furoate 200 1 inh inhalation QAM 12/02/20 04/09/25 mcg-vilanterol 25 mcg/dose inhalation powder (Breo Ellipta) levothyroxine 137 mcg capsule 137 mcg PO QAM 12/02/20 04/09/25 polyethylene glycol 3350 17 17 g PO QAM 12/02/20 04/09/25 gram/dose oral powder (Miralax) pravastatin 20 mg tablet 20 mg PO QAM 12/02/20 04/09/25 diltiazem HCl 360 mg 360 mg PO QAM 05/08/23 04/09/25 capsule,extended release 24 hr flecainide 150 mg tablet 75 mg PO BID 05/08/23 04/09/25 losartan 50 mg tablet 50 mg PO BID 05/08/23 04/09/25 metoprolol succinate 25 mg 25 mg PO QAM 12/11/23 04/09/25 tablet,extended release 24 hr albuterol sulfate 90 mcg/actuation 2 puff inhalation QID PRN 03/05/25 04/09/25 aerosol inhaler Shortness Of Breath Or Wheezing cephalexin 500 mg capsule 2,000 mg PO UD PRN dental 03/05/25 04/09/25 procedures docusate sodium 100 mg capsule 300 mg PO Q OTHER DAY 03/05/25 04/09/25 (Stool Softener) acetaminophen 500 mg tablet 1,000 mg PO QID 04/09/25 04/09/25 docusate sodium 100 mg capsule 400 mg PO Q OTHER DAY 04/09/25 04/09/25 oatyggln-vou-olima ac 400 1 tab PO QAM 04/09/25 04/09/25 mcg-calcium carb 500 mg-vit K1 20 mcg tablet triamterene 75 1 tab PO QAM 04/09/25 04/09/25 mg-hydrochlorothiazide 50 mg tablet Previous Rx's Medication Instructions Recorded ondansetron 4 mg disintegrating 4 mg PO Q8 PRN nausea #20 tabs 03/10/25 tablet oxycodone 5 mg tablet 5 - 10 mg (1 - 2 x 5 mg) PO Q6 PRN 03/10/25 pain #40 tabs celecoxib 100 mg capsule (Celebrex) 100 mg PO BID Pain #60 caps 03/27/25 cephalexin 500 mg capsule 500 mg PO Q6H 8 days #32 caps 04/11/25 Results & Data (ED) Vital Signs Vital Signs - 24 hr 04/09/25 12:20 04/09/25 12:45 04/09/25 13:00 Temperature 36.6 C Temperature Source Oral Pulse Rate 80 72 71 Pulse Rate [Apical] Pulse Rate from SpO2 Sensor 72 72 Respiratory Rate 20 16 21 Respiratory Effort / Characteristics Respiratory Depth Normal Respiratory Pattern Blood Pressure 146/68 H 120/63 Blood Pressure [Left Arm] Blood Pressure Mean 94 82 Blood Pressure Mean [Left Arm] Pulse Oximetry 95 94 93 Oxygen Delivery Method Room Air Sepsis New/Unexplained Change in Mental Status N/A Sepsis Action Taken by Nursing No Action Required 04/09/25 13:18 04/09/25 13:30 04/09/25 14:12 Temperature Temperature Source Pulse Rate 72 68 64 Pulse Rate [Apical] Pulse Rate from SpO2 Sensor 64 Respiratory Rate 14 18 Respiratory Effort / Characteristics Respiratory Depth Respiratory Pattern Blood Pressure 122/67 139/70 Blood Pressure [Left Arm] Blood Pressure Mean 85 93 Blood Pressure Mean [Left Arm] Pulse Oximetry 97 Oxygen Delivery Method Sepsis New/Unexplained Change in Mental Status Sepsis Action Taken by Nursing 04/09/25 14:21 04/09/25 15:03 04/09/25 16:04 Temperature Temperature Source Pulse Rate 65 67 Pulse Rate [Apical] 68 Pulse Rate from SpO2 Sensor 67 Respiratory Rate 31 H 25 H Respiratory Effort / Characteristics Non-Labored Spontaneous Respiratory Depth Normal Respiratory Pattern Regular Blood Pressure 114/55 L Blood Pressure [Left Arm] 124/61 Blood Pressure Mean 74 Blood Pressure Mean [Left Arm] 82 Pulse Oximetry 98 98 Oxygen Delivery Method Room Air Sepsis New/Unexplained Change in Mental Status Sepsis Action Taken by Nursing 04/09/25 16:32 Temperature Temperature Source Pulse Rate Pulse Rate [Apical] 74 Pulse Rate from SpO2 Sensor Respiratory Rate 18 Respiratory Effort / Characteristics Non-Labored Spontaneous Respiratory Depth Normal Respiratory Pattern Regular Blood Pressure Blood Pressure [Left Arm] 141/68 H Blood Pressure Mean Blood Pressure Mean [Left Arm] 92 Pulse Oximetry 97 Oxygen Delivery Method Room Air Sepsis New/Unexplained Change in Mental Status Sepsis Action Taken by Nursing Laboratory Data 04/11/25 06:00 04/11/25 06:00 Lab Results 04/09/25 04/09/25 Range/Units 13:21 15:02 WBC 8.21 (4.8-10.8) K/ul RBC 3.73 L (4.20-5.40) M/uL Hgb 11.5 L (12.0-16.0) g/dL Hct 31.9 L (37.0-47.0) % MCV 85.5 (80.0-100.0) fL MCH 30.8 (25.0-34.0) pg MCHC 36.1 H (32.0-36.0) g/dL RDW Std Deviation 45.4 (36.4-46.3) fL RDW Coeff of Doug 14.4 (11.5-14.5) % Plt Count 175 (130-400) K/uL MPV 10.4 (9.4-12.4) fL Immature Gran % (Auto) 0.4 % Neut % (Auto) 85.8 % Lymph % (Auto) 6.9 % Hoke % (Auto) 5.6 % Eos % (Auto) 0.9 % Baso % (Auto) 0.4 % Neut # (Auto) 7.05 H (1.40-6.50) K/uL Lymph # (Auto) 0.57 L (1.20-3.40) K/uL Hoke # (Auto) 0.46 (0.11-0.59) K/uL Eos # (Auto) 0.07 (0.00-0.50) K/uL Baso # (Auto) 0.03 (0.00-0.20) K/uL Immature Gran # (Auto) 0.03 (0.01-0.20) K/uL Sodium 130 L (136-145) mmol/L Potassium 3.0 L (3.5-5.1) mmol/L Chloride 95 L (98-107) mmol/L Carbon Dioxide 23 (21-32) mmol/L Anion Gap 12 H (3-11) BUN 38 H (6-23) mg/dl Creatinine 1.44 H (0.6-1.2) mg/dl Est Cr Clr Drug Dosing Not Reportable eGFR 38.17 BUN/Creatinine Ratio 26.4 H (10-20) Glucose 101 H (70-99(Fasting)) mg/dl Lactate 1.0 (0.4-2.0) mmol/L Calcium 8.4 L (8.6-10.3) mg/dl Magnesium 2.1 (1.7-2.4) mg/dl Total Bilirubin 0.7 (0.2-1.0) mg/dl AST 38 (13-39) U/L ALT 37 (7-52) U/L Alkaline Phosphatase 129 H (34-104) U/L Troponin I High Sens 11.1 (0-14) pg/ml Total Protein 6.1 (6.0-8.3) gm/dl Albumin 3.3 L (3.4-5.0) gm/dl Globulin 2.8 (2.5-4.0) gm/dl Albumin/Globulin Ratio 1.2 (0.9-2) Procalcitonin 2.28 H (0-0.5) ng/ml Administered Medications Discontinued Medications Acetaminophen (Acetaminophen 325 Mg Tab) 650 mg PO Q4H PRN PRN Reason: Pain or Fever Stop: 05/09/25 23:38 Last Admin: 04/09/25 23:45 Dose: 650 mg Documented By: petrona Acetaminophen (Acetaminophen 500 Mg Tab) 1,000 mg PO Q8H [facility] Stop: 05/10/25 07:59 Last Admin: 04/11/25 15:33 Dose: 1,000 mg Documented By: MTMichelle Admin: 04/11/25 09:14 Dose: 1,000 mg Documented By: Admin: 04/10/25 23:49 Dose: 1,000 mg Documented By: Admin: 04/10/25 15:38 Dose: 1,000 mg Documented By: marlen Co-signed By: MILLY Admin: 04/10/25 08:23 Dose: 1,000 mg Documented By: marlen Co-signed By: MILLY Celecoxib (Celebrex 200 Mg Cap) 200 mg PO ONE ONE Stop: 04/11/25 03:02 Last Admin: 04/11/25 03:42 Dose: 200 mg Documented By: JADON Diltiazem HCl (Diltiazem Hcl 180 Mg Capcr) 360 mg PO [facility] Stop: 05/10/25 08:59 Last Admin: 04/11/25 09:12 Dose: 360 mg Documented By: Admin: 04/10/25 08:26 Dose: 360 mg Documented By: marlen Co-signed By: MILLY Enoxaparin Sodium (Enoxaparin Inj 40 Mg/0.4 Ml Syr) 40 mg SQ Q24H [facility] Stop: 05/09/25 20:59 Last Admin: 04/10/25 20:30 Dose: 40 mg Documented By: Admin: 04/09/25 21:36 Dose: 40 mg Documented By: petrona Flecainide Acetate (Flecainide Acetate 100 Mg Tablet) 75 mg PO BID [facility] Stop: 05/10/25 08:59 Last Admin: 04/11/25 09:12 Dose: 75 mg Documented By: Admin: 04/10/25 20:29 Dose: 75 mg Documented By: Admin: 04/10/25 08:28 Dose: 75 mg Documented By: marlen Co-signed By: MILLY Fluticasone/Vilanterol (Fluticasone/Vilanterol 200/25mcg 14 Puffs/Inhaler) 1 puffs INH [facility] Stop: 05/10/25 08:59 Last Admin: 04/11/25 09:11 Dose: 1 puffs Documented By: Admin: 04/10/25 08:25 Dose: 1 puffs Documented By: marlen Co-signed By: MILLY Potassium Chloride (K Meño / Wtr) 10 meq in 100 mls @ 100 mls/hr IV Q1H DANA Stop: 04/09/25 16:44 Last Infusion: 04/09/25 17:44 Dose: Infused Documented By: cad Admin: 04/09/25 16:36 Dose: 100 mls/hr Documented By: britta Infusion: 04/09/25 16:22 Dose: Infused Documented By: britta Admin: 04/09/25 15:22 Dose: 100 mls/hr Documented By: NATALIE Sodium Chloride (Nss) 500 mls @ 999 mls/hr IV .Q31M ONE Stop: 04/09/25 16:01 Last Infusion: 04/09/25 16:15 Dose: Infused Documented By: britta Admin: 04/09/25 15:34 Dose: 999 mls/hr Documented By: NATALIE Lactated Ringer's (Lr) 1,000 mls @ 115 mls/hr IV .Q8H42M DANA Stop: 04/10/25 20:56 Last Infusion: 04/11/25 01:40 Dose: Infused Documented By: Admin: 04/10/25 16:08 Dose: 115 mls/hr Documented By: Infusion: 04/10/25 15:02 Dose: Infused Documented By: Admin: 04/10/25 06:20 Dose: 115 mls/hr Documented By: bna Infusion: 04/10/25 06:11 Dose: Infused Documented By: bna Admin: 04/09/25 21:29 Dose: 115 mls/hr Documented By: petrona Ceftriaxone Sodium (Rocephin) 2,000 mg in 50 mls @ 100 mls/hr IV Q24H DANA Stop: 04/16/25 20:59 Last Infusion: 04/10/25 21:00 Dose: Infused Documented By: Admin: 04/10/25 20:30 Dose: 100 mls/hr Documented By: Infusion: 04/09/25 22:09 Dose: Infused Documented By: Admin: 04/09/25 21:33 Dose: 100 mls/hr Documented By: petrona Influenza Virus Vacc Triv Types A&B (Influenza Vacc [id number](65y+)/Pf (Iiv3) 0.5ml Syr) 0.5 ml IM .ONCE ONE Stop: 04/11/25 14:46 Last Admin: 04/11/25 15:26 Dose: 0.5 ml Documented By: EDSON Levothyroxine Sodium (Levothyroxine Sodium 137 Mcg Tablet) 137 mcg PO DAILYBB [facility] Stop: 05/10/25 06:29 Last Admin: 04/11/25 05:55 Dose: 137 mcg Documented By: Admin: 04/10/25 06:20 Dose: 137 mcg Documented By: petrona Metoprolol Succinate (Metoprolol Succ 25mg Ext Rel Tab) [facility] Stop: 05/10/25 08:59 Last Admin: 04/11/25 09:12 Dose: 25 mg Documented By: Admin: 04/10/25 08:26 Dose: 25 mg Documented By: marlen Co-signed By: MILLY Polyethylene Glycol (Polyethylene (Miralax) 17 Gm Pack) 17 gm PO [facility] Stop: 05/10/25 08:59 Last Admin: 04/11/25 09:13 Dose: Not Given Documented By: Admin: 04/10/25 08:23 Dose: 17 gm Documented By: marlen Co-signed By: MILLY Potassium Chloride (Potassium Chloride 10 Meq Tabcr) 10 meq PO NOW STA Stop: 04/09/25 14:42 Last Admin: 04/09/25 15:19 Dose: 10 meq Documented By: NATALIE Potassium Chloride (Potassium Chloride Crtab 20 Meq Tabcr) 40 meq PO BID DANA Stop: 04/10/25 21:01 Last Admin: 04/10/25 20:29 Dose: 40 meq Documented By: [facility] Admin: 04/10/25 09:13 Dose: 40 meq Documented By: MILLY Pravastatin Sodium (Pravastatin Sod 20 Mg Tab) [facility] [place] Stop: 05/10/25 08:59 Last Admin: 04/11/25 09:12 Dose: 20 mg Documented By: Admin: 04/10/25 08:27 Dose: 20 mg Documented By: marlen Co-signed By: MILLY Saccharomyces Boulardii (Saccharomyces Boulardii 250 Mg Cap) 250 mg PO DAILY [facility] Stop: 05/10/25 14:59 Last Admin: 04/11/25 09:12 Dose: 250 mg Documented By: MTMichelle Admin: 04/10/25 15:38 Dose: 250 mg Documented By: marlen Co-signed By: MILLY Sumatriptan Succinate (Sumatriptan Succinate 50 Mg Tab) 50 mg PO ONE ONE Stop: 04/11/25 01:01 Last Admin: 04/11/25 01:16 Dose: 50 mg Documented By: LUZ Discharge Plan Visit Data Chief Complaint: Need IV Start Stated Complaint: DOC SENT, IV FLUIDS, RASH ON KNEE, ED Provider: Lita Moreno ED Midlevel Provider: Joann Phelan Discharge Problem: Status post knee replacement, Hypokalemia, KEVAN (acute kidney injury), Hyponatremia, Elevated procalcitonin Patient Disposition: Admitted As Inpatient Condition: Fair Discharge Instructions Interventions: ED Discharge Assessment Last Done: 04/09/25 20:44 Discharge Problem: Status post knee replacement Qualifiers: Laterality: left Qualified Code(s): Z96.652 - Presence of left artificial knee joint
[2025-04-09 14:24] LABS: Hematocrit (blood only) 31.9 % (37.0-47.0); Hemoglobin 11.5 g/dL (12.0-16.0); Immature Granulocytes # (auto) 0.03 K/uL (0.01-0.20); Immature Granulocytes % (auto) 0.4 %; Mean Corpuscular Hemoglobin 30.8 pg (25.0-34.0); Mean Corpuscular Volume 85.5 fL (80.0-100.0); Platelet Count 175 K/uL (130-400); RDW Standard Deviation 45.4 fL (36.4-46.3); Red Blood Count 3.73 M/uL (4.20-5.40); White Blood Count 8.21 K/ul (4.8-10.8)
[2025-04-09 14:40] LABS: Alanine Aminotransferase 37 U/L (7-52); Albumin Globulin Ratio 1.2 (0.9-2); Albumin Level 3.3 gm/dl (3.4-5.0); Alkaline Phosphatase 129 U/L (34-104); Anion Gap 12 (3-11); Bilirubin,Total 0.7 mg/dl (0.2-1.0); Blood Urea Nitrogen 38 mg/dl (6-23); Calcium 8.4 mg/dl (8.6-10.3); Carbon Dioxide 23 mmol/L (21-32); Chloride 95 mmol/L (98-107); Globulin 2.8 gm/dl (2.5-4.0); Glucose 101 mg/dl (70-99(Fasting)); Potassium 3.0 mmol/L (3.5-5.1); Sodium 130 mmol/L (136-145); Total Protein 6.1 gm/dl (6.0-8.3)
--- NOTE | 2025-04-09 14:52 | Ultrasound Report ---
ULTRASOUND LEFT LOWER EXTREMITY VENOUS CLINICAL HISTORY: Recent knee surgery. Left leg pain. Rash. COMPARISON STUDY: Left lower extremity venous ultrasound dated 07/11/2024. TECHNIQUE: Real-time, grayscale, and color Doppler sonography of the deep veins of the left lower ext remity was performed from the inguinal crease to the calf. Compression and augmentation were utilized . FINDINGS: There is no sonographic evidence of deep venous thrombosis identified in the left lower ext remity. The common femoral, superficial femoral, and popliteal veins are patent and normally compress ible. The greater saphenous vein and the profunda femoris vein at the junction with the common femora l vein are clear. The visualized calf veins are patent. A prominent left inguinal lymph node is nonsp ecific and likely reactive. IMPRESSION: There is no sonographic evidence of deep venous thrombosis identified in the left lower e xtremity. ACT 112: Negative or not required by law. Electronically signed by: Hans Anderson M.D. 04/09/2025 2:50 PM
--- NOTE | 2025-04-09 14:58 | Emergency Department Note ---
ED Visit Note I was consulted by the Advanced Practice Provider, Joann Phelan PA-C. I performed a substantive portion of the visit. This includes aspects of: History: Patient is a 74-year-old female presenting with flulike symptoms. Patient reportedly started having flulike symptoms around 5 days ago experiencing chills and sweats. She states that yesterday she developed a notable rash on her left lower extremity that extends from the left hip to her toes. She denies any injury to the area. She recently had a total left knee replacement on 03/13/2025. She was referred by her primary care provider after having laboratory workup obtained at the [facility] that noted that she had a low sodium. MDM: Laboratory workup in the emergency department showed hyponatremia, hypokalemia and an KEVAN. Patient did also have a notable elevated procalcitonin but a normal lactate. Ultrasound imaging negative for DVT. Case was discussed with the hospitalist for further evaluation and management and admission. .
[2025-04-09 15:00] LABS: Magnesium 2.1 mg/dl (1.7-2.4)
[2025-04-09] MEDS: POTASSIUM CHLORIDE 10 MEQ TABCR PO STA (15:19)
[2025-04-09] MEDS: POTASSIUM CHLORIDE / WTR 10 MEQ/100 ML PLCT IV SCH (15:22)
[2025-04-09] MEDS: SODIUM CHLORIDE 0.9% 500 ML IV ONE (15:34)
--- NOTE | 2025-04-09 17:07 | XRay Report ---
EXAM: Portable AP chest radiograph TECHNIQUE: AP portable radiograph of the chest was obtained. INDICATION: Shortness of breath Comparison: Chest radiograph February 20, 2025 FINDINGS: LINES and TUBES: None CARDIOVASCULAR: Cardiac silhouette is stably enlarged in size. LUNGS/PLEURA: No focal consolidation identified. Peribronchial cuffing that may be due to bronchiolitis. Mild pulmonary vascular congestion and chronic interstitial lung changes are similar to the previous radiograph. No significant pleural fluid. No discernible pneumothorax. OSSEOUS/OTHER: No displaced acute osseous process identified. Bilateral shoulder reverse arthroplasties. Hiatal hernia is again seen. IMPRESSION: No focal consolidation identified. Peribronchial cuffing that may be due to bronchiolitis. Electronically signed by Bala Onofre 04-09-2025 5:06 PM
--- NOTE | 2025-04-09 18:04 | History & Physical Report ---
Date of Service April 09, 2025 Assessment & Plan (1) Cellulitis of left lower extremity: (2) Rigors: (3) Acute kidney injury: (4) Hypokalemia: (5) Hyponatremia with decreased serum osmolality: Plan In summary this is a 74-year-old female who presents for rigors and general bahman ise found to have left lower extremity cellulitis with an associated acute kidney injury #Left lower extremity cellulitis // Rigors Presents with a maculopapular rash with erythema and is tender to palpation with increasing radiating heat compared to the right lower extremity; not consistent with erysipelas nor is or evidence of carbuncle or furuncle formation; most likely consequential with streptococcal species based on its appearance, there are multiple sites of potential bacterial access from previous blistering wounds that were apparently sustained in the postoperative period with some epidermal sloughing; patient denies measurable fever at home but has been taking scheduled APAP postoperatively for pain management, thus may be suppressed Start ceftriaxone 2 g IV daily; chosen for the patient's lack of risk for MRSA, non-purulent cellulitis, hemodynamic stability, and anaphylaxis with PCN Follow blood cultures obtained in the emergency department Follow daily CBC with manual differential and renal function panel #Acute kidney injury, prerenal Presenting creatinine of 1.44 (baseline 0.9); currently nonoliguric and without recent hypotensive period, comorbid heart failure; prescribed celecoxib chronically for management of osteoarthritis; associated hypokalemia and hyponatremia; suspect most likely to be prerenal given presenting associated infection and rigors with insensible losses from fever -Vital signs every shift -Nurse to notify attending of UOP below goal of 0.5 mL/kg/hour -Intake and output measures every shift -Follow daily RFP Continue with maintenance IV fluids - Hold Losartan and HCTZ/Triamterene #Hyponatremia with decreased serum osmolality Serum sodium at presentation 130; slightly hypovolemic at the time of admission; prescribed triamterene hydrochlorothiazide in the outpatient setting; calculated serum osmolarity of 279; suspect this is likely a consequence of the patient's diminished oral intake over the past several days, iatrogenic fluid loss of the setting of borderline fevers and rigors, in addition to continued use of combination antihypertensive triamterene-hydrochlorothiazide -Intake and output measure every shift -Follow daily RFP Hold triamterene-hydrochlorothiazide at this time History of Present Illness Chief Complaint: Generalized malaise and chills with left lower extremity rash Primary Care Provider: Shae Babcock MD Ms. Khan is a 74-year-old female whose active medical conditions include Severe premature ventricular contractions, gastroesophageal reflux disease, acquired hypothyroidism among other chronic medical conditions who presented to the [facility] due to progressive chills and malaise over the past 4 to 5 days with development of a left lower extremity rash on the day of presentation. The patient describes beginning on 04/04 the began to experience intermittent episodes of chills with rigors without associated measurable fever; these episodes have become more frequent over the subsequent days and she has developed an increasing sense of malaise. On the day of presentation, the patient was seen by their primary care provider due to the symptoms, found to have a large left lower extremity rash with radiating heat and was referred to the emergency department for further evaluation. At the time my evaluation the patient denies any fever, chills, nausea, vomiting, left lower extremity pain, new or progressive lower extremity edema, shortness of breath, dyspnea, orthopnea, cough, abdominal pain, complications or new pain related to their left knee TKA that was recently performed in 02/2025. Allergies Allergy/AdvReac Type Severity Reaction Status Date / Time Penicillins Allergy Severe Anaphylaxis Verified 03/13/25 06:53 fluvastatin AdvReac Severe Joint Pain Verified 03/13/25 06:53 rosuvastatin AdvReac Severe Joint Pain Verified 03/13/25 06:53 Home Medications Medication Instructions Recorded Confirmed Type esomeprazole magnesium 20 mg 20 mg PO DAILYBB 12/02/20 04/09/25 History capsule,delayed release (Nexium) fluticasone furoate 200 1 inh inhalation QAM 12/02/20 04/09/25 History mcg-vilanterol 25 mcg/dose inhalation powder (Breo Ellipta) levothyroxine 137 mcg capsule 137 mcg PO QAM 12/02/20 04/09/25 History polyethylene glycol 3350 17 17 g PO QAM 12/02/20 04/09/25 History gram/dose oral powder (Miralax) pravastatin 20 mg tablet 20 mg PO QAM 12/02/20 04/09/25 History diltiazem HCl 360 mg 360 mg PO QAM 05/08/23 04/09/25 History capsule,extended release 24 hr flecainide 150 mg tablet 75 mg PO BID 05/08/23 04/09/25 History losartan 50 mg tablet 50 mg PO BID 05/08/23 04/09/25 History metoprolol succinate 25 mg 25 mg PO QAM 12/11/23 04/09/25 History tablet,extended release 24 hr albuterol sulfate 90 mcg/actuation 2 puff inhalation QID PRN 03/05/25 04/09/25 History aerosol inhaler Shortness Of Breath Or Wheezing cephalexin 500 mg capsule 2,000 mg PO UD PRN dental 03/05/25 04/09/25 History procedures docusate sodium 100 mg capsule 300 mg PO Q OTHER DAY 03/05/25 04/09/25 History (Stool Softener) aspirin 81 mg tablet,delayed 81 mg PO BID 45 days #90 tabs 03/10/25 04/09/25 Rx release (Jaquan Low Dose Aspirin) ondansetron 4 mg disintegrating 4 mg PO Q8 PRN nausea #20 tabs 03/10/25 04/09/25 Rx tablet oxycodone 5 mg tablet 5 - 10 mg (1 - 2 x 5 mg) PO Q6 PRN 03/10/25 04/09/25 Rx pain #40 tabs celecoxib 100 mg capsule (Celebrex) 100 mg PO BID Pain #60 caps 03/27/25 04/09/25 Rx acetaminophen 500 mg tablet 1,000 mg PO QID 04/09/25 04/09/25 History docusate sodium 100 mg capsule 400 mg PO Q OTHER DAY 04/09/25 04/09/25 History kvlzlbvq-nmd-kgrlk ac 400 1 tab PO QAM 04/09/25 04/09/25 History mcg-calcium carb 500 mg-vit K1 20 mcg tablet triamterene 75 1 tab PO QAM 04/09/25 04/09/25 History mg-hydrochlorothiazide 50 mg tablet Past Med/Surg History Problem List (Updated 04/09/25 @ 18:28 by Edd Garner DO) Hyponatremia with decreased serum osmolality Hypokalemia Acute kidney injury Cellulitis of left lower extremity Rigors Hypertension Hyperlipidemia Hypothyroidism GERD (gastroesophageal reflux disease) Calcified granuloma of lung Follows at [facility] Degenerative disc disease PVCs (premature ventricular contractions) Controlled with Flecainide Follows with Dr. Alcaraz/[facility] [place] Medical History Osteoarthritis of left shoulder Osteoarthritis of left knee Tinnitus Had viral infection 04/2024 (which is when tinnitus started)- had unremarkable MRI evalulation/workup Claustrophobia Osteoarthritis of left knee Asthma Stable per pt, only uses albuterol PRN r/t humidity Follows with [facility] [place] [facility]/Dr. Pereyra Hx of tuberculosis Age 2, treated at the time No current issues Denies new or changed cough, shortness of breath, night sweats or unexplained weight loss. History of COVID-19 (2020) Following black mold PNA in 2020 Patient currently follows with pulmonary [facility] [place], hx glass opacity via CXR (per patient) that was scar tissue from having TB as a child (treated). Surgical History Hx of esophagogastroduodenoscopy History of anesthesia reaction During last shoulder surgery 01/2024, patient reports "lost control of her bladder" x 24 hours, "had minimal b/l pleural effusions and felt as though was oversedated" had difficulty waking patient up on way home from surgery- felt possibly r/t versed- was also very nauseated Has concerns with this surgery as far as receiving anesthesia again (previously had never had a reaction) History of arthroplasty of both shoulders (2023) R/L History of total abdominal hysterectomy and bilateral salpingo-oophorectomy (2021) History of bilateral tubal ligation (1979) History of carpal tunnel release Left S/P total knee replacement (2018) Right History of thyroidectomy, subtotal Right partial removal d/t thyroid nodule History of bronchoscopy Early (r/t having TB as a child/believe she has scar tissue from TB) History of colonoscopy History of cholecystectomy History of tonsillectomy (1955) History of cataract surgery R/L, wtih lens implants History of cardiac cath (2012) [facility] [place], no stents S/P bladder repair (2021) Bladder lift- during REX/BSO Family History Other No family history of adverse response to anesthesia Social History Smoking Status: Never smoker Second Hand Exposure: No; Do You Dip or Chew Tobacco: No; Hx Alcohol Use: No Hx Substance Use: No Preferred Language: Peruvian Communication Ability: Effective Stockbroking Dealer Required: No Beliefs That Will Affect Care: Mormonism Mormonism Beliefs: mandaen Current Living Situation: Spouse Feels Safe at Home: Yes Assistive Devices: Cane and Walker Review of Systems Review of Systems: Review of constitutional, cardiovascular, pulmonary, gastrointestinal, genitour inary, pulmonary systems was unremarkable except for pertinent positive and negative findings discussed above Physical Exam Physical Exam: General: Elderly female in no acute distress Vital Signs: Reviewed HEENT: Moist mucous membranes; pupils equally round and reactive to light; extraocular motions intact Pulmonary: Symmetric chest wall excursion without restriction; comfortable respirations; clear to auscultation bilaterally Cardiovascular: Regular rate and rhythm with grade 2/6 systolic murmur best heard in the right second intercostal space parasternally; no rubs or gallops; S1 and S2 normal; left radial pulse 2+; no notable lower extremity edema Gastrointestinal: Soft, nontender Musculoskeletal: Surgical site involving the left knee appears well, no surgical site dehiscence, nor effusion; range of motion is restricted as expected in the postoperative phase however does not cause any discomfort Neurologic: Cranial nerves II through XII grossly intact; no discernible focal weakness nor paresthesia Skin: The left lower extremity has a erythematous maculopapular rash that ion nches with pressure, is nontender; the areas associated with this rash do radiate heat more so compared to the right lower extremity; the rash extends from the proximal lateral thigh the entire length to the phalanges; the skin is not taut nor tense but is slightly tender to palpation; there are no areas of fluctuance nor fluid accumulation that can be appreciated Results & Data Results & Data Vital Signs (Past 12 Hours) Vital Signs Temp Pulse Pulse Resp BP BP Pulse Ox 04/09/25 17:50 74 04/09/25 17:30 74 15 143/79 H 96 04/09/25 17:00 73 21 155/74 H 94 04/09/25 16:32 74 18 141/68 H 97 04/09/25 16:04 68 25 H 124/61 98 04/09/25 15:03 67 31 H 114/55 L 98 04/09/25 14:21 65 04/09/25 14:12 64 18 139/70 97 04/09/25 13:30 68 14 122/67 04/09/25 13:18 72 04/09/25 13:00 71 21 120/63 93 04/09/25 12:45 72 16 94 04/09/25 12:20 36.6 C 80 20 146/68 H 95 O2 Del Method 04/09/25 17:50 04/09/25 17:30 04/09/25 17:00 04/09/25 16:32 Room Air 04/09/25 16:04 Room Air 04/09/25 15:03 04/09/25 14:21 04/09/25 14:12 04/09/25 13:30 04/09/25 13:18 04/09/25 13:00 04/09/25 12:45 04/09/25 12:20 Room Air Laboratory Results Serum sodium 130, potassium 3.0, chloride 95, bicarbonate 23 Serum creatinine 1.44 Alkaline phosphatase 129 Procalcitonin 2.28 Diagnostic Findings Lower extremity venous Doppler does not reveal any DVT Plain film of the left knee does not reveal any acute findings associated with the patient's recent TKA Code Status & VTE Plan Code Status Full code VTE Prophylaxis Plan VTE Prophylaxis will be ordered: Yes PG Care Time/CCT Total # of Minutes Spent Total Time Spent with Patient: Total time spent is greater than 50% in coordination of care (as documented) at patient's floor/unit and/or counseling patient: Coding Level of Care Code 85757 INT INP/OBS CARE 2/55MIN Diagnoses Cellulitis of left lower extremity L03.116 Rigors R68.89 Acute kidney injury N17.9 Hypokalemia E87.6 Hyponatremia with decreased serum osmolality E87.1
[2025-04-09] MEDS ORDERED: INFLUENZA VACC TS2025-26(65y+)/PF (IIV3) 0.5mL Syr IM ONE (21:27)
[2025-04-09] MEDS: LACTATED RINGER'S 1,000 ML IV SCH (21:29)
[2025-04-09] MEDS: cefTRIAXone SODIUM 2,000 MG/50 ML BAG IV SCH (21:33)
[2025-04-09] MEDS: ENOXAPARIN INJ 40 MG/0.4 ML SYR SQ SCH (21:36)
[2025-04-09] MEDS: ACETAMINOPHEN 325 MG TAB PO PRN (23:45)
[2025-04-10] MEDS: LEVOTHYROXINE SODIUM 137 MCG TABLET PO SCH (06:20)
--- NOTE | 2025-04-10 07:12 | Orthopedic Consultation ---
Date of Service April 10, 2025 Assessment & Plan (1) Status post left knee replacement: 74-year-old female now 1 month out from left knee replacement readmitted with medical issues including hyponatremia, hypokalemia and a significant rash of the left leg. This does not look like cellulitis and looks like some type of allergic reactionary rash. I do not think this is a sign of infection. She has minimal knee effusion excellent range of motion no pain in her knee. Plan: At this point we obviously recommend correction of her sodium and potassium. I think it is fine to keep her on the antibiotics for now. I really think she benefit most from a dose of some steroids. Continue physical therapy for the left knee. Continue DVT prophylaxis. Once again, the left leg rash appears to be reactionary in nature and I think she would benefit from a dose of steroids. Any orthopedic questions can direct me [phone]. (2) Hyponatremia with decreased serum osmolality: (3) Hypokalemia: (4) Acute kidney injury: History of Present Illness Reason for Consultation: . Patient admitted 1 month status post total knee replacement with concerns of cellulitis Requesting Physician: . Attending Physician: Edd Garner DO . Patient is a 74-year-old female now about a month out from total knee replac [facility]. She has done well until about 3 to 4 days ago started feeling just very poorly. Denies any fevers. She just not felt well. She brought is brought to the emergency room where because clinical exam suggest significant the redness and rash to the left leg. Workup to date has been otherwise negative. Denies much in the way of knee pain. Her knee is working well. Denies any fever at home. No chest pain or shortness of breath. Allergies Allergy/AdvReac Type Severity Reaction Status Date / Time Penicillins Allergy Severe Anaphylaxis Verified 03/13/25 06:53 fluvastatin AdvReac Severe Joint Pain Verified 03/13/25 06:53 rosuvastatin AdvReac Severe Joint Pain Verified 03/13/25 06:53 Home Medications Medication Instructions Recorded Confirmed Type esomeprazole magnesium 20 mg 20 mg PO DAILYBB 12/02/20 04/09/25 History capsule,delayed release (Nexium) fluticasone furoate 200 1 inh inhalation QAM 12/02/20 04/09/25 History mcg-vilanterol 25 mcg/dose inhalation powder (Breo Ellipta) levothyroxine 137 mcg capsule 137 mcg PO QAM 12/02/20 04/09/25 History polyethylene glycol 3350 17 17 g PO QAM 12/02/20 04/09/25 History gram/dose oral powder (Miralax) pravastatin 20 mg tablet 20 mg PO QAM 12/02/20 04/09/25 History diltiazem HCl 360 mg 360 mg PO QAM 05/08/23 04/09/25 History capsule,extended release 24 hr flecainide 150 mg tablet 75 mg PO BID 05/08/23 04/09/25 History losartan 50 mg tablet 50 mg PO BID 05/08/23 04/09/25 History metoprolol succinate 25 mg 25 mg PO QAM 12/11/23 04/09/25 History tablet,extended release 24 hr albuterol sulfate 90 mcg/actuation 2 puff inhalation QID PRN 03/05/25 04/09/25 History aerosol inhaler Shortness Of Breath Or Wheezing cephalexin 500 mg capsule 2,000 mg PO UD PRN dental 03/05/25 04/09/25 History procedures docusate sodium 100 mg capsule 300 mg PO Q OTHER DAY 03/05/25 04/09/25 History (Stool Softener) aspirin 81 mg tablet,delayed 81 mg PO BID 45 days #90 tabs 03/10/25 04/09/25 Rx release (Jaquan Low Dose Aspirin) ondansetron 4 mg disintegrating 4 mg PO Q8 PRN nausea #20 tabs 03/10/25 04/09/25 Rx tablet oxycodone 5 mg tablet 5 - 10 mg (1 - 2 x 5 mg) PO Q6 PRN 03/10/25 04/09/25 Rx pain #40 tabs celecoxib 100 mg capsule (Celebrex) 100 mg PO BID Pain #60 caps 03/27/25 04/09/25 Rx acetaminophen 500 mg tablet 1,000 mg PO QID 04/09/25 04/09/25 History docusate sodium 100 mg capsule 400 mg PO Q OTHER DAY 04/09/25 04/09/25 History gjplkxfr-yod-nbryk ac 400 1 tab PO QAM 04/09/25 04/09/25 History mcg-calcium carb 500 mg-vit K1 20 mcg tablet triamterene 75 1 tab PO QAM 04/09/25 04/09/25 History mg-hydrochlorothiazide 50 mg tablet Past Med/Surg History Problem List Status post left knee replacement Hyponatremia with decreased serum osmolality Hypokalemia Acute kidney injury Cellulitis of left lower extremity Rigors Hypertension Hyperlipidemia Hypothyroidism GERD (gastroesophageal reflux disease) Calcified granuloma of lung Follows at [facility] pulmonary Degenerative disc disease PVCs (premature ventricular contractions) Controlled with Flecainide Follows with Dr. Alcaraz/[facility] Medical History Osteoarthritis of left shoulder Osteoarthritis of left knee Tinnitus Had viral infection 04/2024 (which is when tinnitus started)- had unremarkable MRI evalulation/workup Claustrophobia Osteoarthritis of left knee Asthma Stable per pt, only uses albuterol PRN r/t humidity [facility]Dr. Pereyra Hx of tuberculosis Age 2, treated at the time No current issues Denies new or changed cough, shortness of breath, night sweats or unexplained weight loss. History of COVID-19 (2020) Following black mold PNA in 2020 Patient currently follows with pulmonary [facility] [place], hx glass opacity via CXR (per patient) that was scar tissue from having TB as a child (treated). Surgical History Hx of esophagogastroduodenoscopy History of anesthesia reaction During last shoulder surgery 01/2024, patient reports "lost control of her bladder" x 24 hours, "had minimal b/l pleural effusions and felt as though was oversedated" had difficulty waking patient up on way home from surgery- felt possibly r/t versed- was also very nauseated Has concerns with this surgery as far as receiving anesthesia again (previously had never had a reaction) History of arthroplasty of both shoulders (2023) R/L History of total abdominal hysterectomy and bilateral salpingo-oophorectomy (2021) History of bilateral tubal ligation (1979) History of carpal tunnel release Left S/P total knee replacement (2018) Right History of thyroidectomy, subtotal Right partial removal d/t thyroid nodule History of bronchoscopy Early (r/t having TB as a child/believe she has scar tissue from TB) History of colonoscopy History of cholecystectomy History of tonsillectomy (1955) History of cataract surgery R/L, wtih lens implants History of cardiac cath (2012) [facility] [place], no stents S/P bladder repair (2021) Bladder lift- during REX/BSO Family History Other No family history of adverse response to anesthesia Social History Smoking Status: Never smoker Second Hand Exposure: No; Do You Dip or Chew Tobacco: No; Hx Alcohol Use: No Hx Substance Use: No Preferred Language: Greenlandic Communication Ability: Effective Hop Grower Required: No Beliefs That Will Affect Care: None Current Living Situation: Spouse Feels Safe at Home: Yes Assistive Devices: Cane Review of Systems All systems reviewed & are unremarkable except as noted in HPI & below. Physical Exam . Physical nation is a pleasant middle-aged female. That she is lying in bed and comfortable looks comfortable. She just states she feels poorly. She is awake alert and oriented. Examination of the left knee reveals a well-healed incision. She does have a significant rash the whole way up and down her leg. There is really not much in the way of a knee effusion. She can do a good straight leg raise. Range of motion is 0 to 125 degrees. Minimal effusion. Results & Data Results & Data Laboratory Results . White blood cell count is normal 8.21. Hemoglobin is 11.5. Macro 31.9. She is hyponatremic and hypokalemic with a sodium 130 and potassium 3.0 Diagnostic Findings . PG Care Time/CCT Total # of Minutes Spent Total Time Spent with Patient: Total time spent is greater than 50% in coordination of care (as documented) at patient's floor/unit and/or counseling patient: Coding Level of Care Code 81023 IN/OBS CONSULT LVL 4,60M Diagnoses Status post left knee replacement Z96.652 Hyponatremia with decreased serum osmolality E87.1 Hypokalemia E87.6 Acute kidney injury N17.9
[2025-04-10 07:21] LABS: Hematocrit (blood only) 30.4 % (37.0-47.0); Hemoglobin 10.7 g/dL (12.0-16.0); Mean Corpuscular Hemoglobin 30.1 pg (25.0-34.0); Mean Corpuscular Volume 85.4 fL (80.0-100.0); Platelet Count 170 K/uL (130-400); RDW Standard Deviation 45.8 fL (36.4-46.3); Red Blood Count 3.56 M/uL (4.20-5.40); White Blood Count 14.02 K/ul (4.8-10.8)
--- NOTE | 2025-04-10 07:34 | Hospitalist Progress Note ---
Date of Service April 10, 2025 Assessment & Plan (1) Cellulitis of left lower extremity: (2) Rigors: (3) Acute kidney injury: (4) Hypokalemia: (5) Hyponatremia with decreased serum osmolality: Plan In summary this is a 74-year-old female who presents for rigors and general bahman ise found to have left lower extremity cellulitis with an associated acute kidney injury #Left lower extremity cellulitis // Rigors Presents with a maculopapular rash with erythema and is tender to palpation with increasing radiating heat compared to the right lower extremity; not consistent with erysipelas nor is or evidence of carbuncle or furuncle formation; most likely consequential with streptococcal species based on its appearance, there are multiple sites of potential bacterial access from previous blistering wounds that were apparently sustained in the postoperative period with some epidermal sloughing; noted orthopedic consultation and opinion regarding rash, at this time the patient has no other source of infection and one would expect a symmetric contact reaction if truly from their compression stockings and she has no symptoms typical of an allergic skin reaction; noted fever overnight 04/10 within first 12 hours of antibiotic administration, not indicative of antibiotic failure Continue ceftriaxone 2 g IV daily; chosen for the patient's lack of risk for MRSA, non-purulent cellulitis, hemodynamic stability, and anaphylaxis with PCN Follow blood cultures obtained in the emergency department Follow daily CBC with manual differential and renal function panel #Acute kidney injury, prerenal Presenting creatinine of 1.44 (baseline 0.9); reassessment 1.30; currently nonoliguric and without recent hypotensive period or comorbid heart failure; prescribed celecoxib chronically for management of osteoarthritis; associated hypokalemia and hyponatremia; suspect most likely to be prerenal given presenting associated infection and rigors with insensible losses from fever -Vital signs every shift -Nurse to notify attending of UOP below goal of 0.5 mL/kg/hour -Intake and output measures every shift -Follow daily RFP Continue with maintenance IV fluids - Hold Losartan and HCTZ/Triamterene #Hyponatremia with decreased serum osmolality Serum sodium at presentation 130; improved to 132; prescribed triamterene hydrochlorothiazide in the outpatient setting; calculated serum osmolarity of 279; suspect this is likely a consequence of the patient's diminished oral intake over the past several days, iatrogenic fluid loss of the setting of borderline fevers and rigors, in addition to continued use of combination antihypertensive triamterene-hydrochlorothiazide - Intake and output measure every shift - Follow daily RFP Hold triamterene-hydrochlorothiazide at this time Admission and Anticipated Discharge Date Admission Date: April 09, 2025 Subjective Ms. Khan is a 74-year-old female whose active medical conditions include Severe premature ventricular contractions, gastroesophageal reflux disease, acquired hypothyroidism among other chronic medical conditions who presented to the [facility] due to progressive chills and malaise over the past 4 to 5 days with development of a left lower extremity rash on the day of presentation. Overnight the patient was febrile with associated rigors; this morning had two episodes of loose stool without hematochezia or associated abdominal discomfort. Review of Systems Review of Systems: Review of constitutional, cardiovascular, pulmonary, gastrointestinal, genitourinary, pulmonary systems was unremarkable except for pertinent positive and negative findings discussed above Physical Exam Physical Exam: General: Elderly female in no acute distress Vital Signs: Reviewed HEENT: Moist mucous membranes; pupils equally round and reactive to light; extraocular motions intact Pulmonary: Symmetric chest wall excursion without restriction; comfortable respirations; clear to auscultation bilaterally Cardiovascular: Regular rate and rhythm with grade 2/6 systolic murmur best heard in the right second intercostal space parasternally; no rubs or gallops; S1 and S2 normal; left radial pulse 2+; no notable lower extremity edema Gastrointestinal: Soft, nontender Musculoskeletal: Surgical site involving the left knee appears well, no surgical site dehiscence, nor effusion; range of motion is restricted as expected in the postoperative phase however does not cause any discomfort Neurologic: Cranial nerves II through XII grossly intact; no discernible focal weakness nor paresthesia Skin: remains with left lower extremity erythematous maculopapular rash that blanches with pressure, is nontender; the intensity of erythema has softened compared to 04/09; these areas remain with greater heat radiation compared to the right lower extremity, but are not as warm as compared to 04/09; the rash extends from the proximal lateral thigh the entire length to the phalanges; the skin is not taut nor tense; there are no areas of fluctuance nor fluid accumulation that can be appreciated Results & Data Results & Data Vital Signs (Past 12 Hours) Vital Signs Temp Pulse Pulse Resp BP BP Pulse Ox 04/09/25 23:39 38.0 C H 04/09/25 22:10 04/09/25 20:58 37.5 C 78 18 150/75 H 95 04/09/25 20:44 77 18 133/66 93 O2 Del Method 04/09/25 23:39 04/09/25 22:10 Room Air 04/09/25 20:58 Room Air 04/09/25 20:44 Room Air Laboratory Results Leukocytosis of 14 with neutrophilic predominance Hypokalemic 3.2 Creatinine 1.30 PG Care Time/CCT Total # of Minutes Spent Total Time Spent with Patient: Total time spent is greater than 50% in coordination of care (as documented) at patient's floor/unit and/or counseling patient: Coding Level of Care Code 97946 SUB INP/OBS CARE 235MIN Diagnoses Cellulitis of left lower extremity L03.116 Rigors R68.89 Acute kidney injury N17.9 Hypokalemia E87.6 Hyponatremia with decreased serum osmolality E87.1
[2025-04-10 07:51] LABS: Albumin Level 3.2 gm/dl (3.4-5.0); Anion Gap 11.0 (3-11); Blood Urea Nitrogen 34.0 mg/dl (6-23); Calcium 8.5 mg/dl (8.6-10.3); Carbon Dioxide 25.0 mmol/L (21-32); Chloride 96.0 mmol/L (98-107); Creatinine Clr Calc Pharmacy 34.6 ml/min; Glucose 89.0 mg/dl (70-99(Fasting)); Potassium 3.2 mmol/L (3.5-5.1); Sodium 132.0 mmol/L (136-145)
[2025-04-10 07:52] LABS: Dohle Bodies 1+; Immature Granulocytes # (auto) 0.07 K/uL (0.01-0.20); Immature Granulocytes % (auto) 0.5 %; Polychromasia 1+
[2025-04-10] MEDS: POLYETHYLENE (MIRALAX) 17 GM PACK PO SCH (08:23)
[2025-04-10] MEDS: ACETAMINOPHEN 500 MG TAB PO SCH (08:23)
[2025-04-10] MEDS: FLUTICASONE/VILANTEROL 200/25MCG 14 PUFFS/INHALER INH SCH (08:25)
[2025-04-10] MEDS: METOPROLOL SUCC 25MG EXT REL TAB PO SCH (08:26)
[2025-04-10] MEDS: PRAVASTATIN SOD 20 MG TAB PO SCH (08:27)
[2025-04-10] MEDS: FLECAINIDE ACETATE 100 MG TABLET PO SCH (08:28)
[2025-04-10] MEDS: POTASSIUM CHLORIDE CRTAB 20 MEQ TABCR PO SCH (09:13)
[2025-04-10 09:25] LABS: Appearance Urine Clear (Clear); Bacteria Urine Automated None Seen (None Seen); Cast Urine Automated 0-2 /lpf (0-2); Epithelial Cell Urine Auto 0-2 /hpf (0-2); Glucose Urine UA Negative (Negative); RBC Urine Automated 0-2 /hpf (0-2)
[2025-04-10] MEDS: SACCHAROMYCES BOULARDII 250 MG CAP PO SCH (15:38)
--- NOTE | 2025-04-10 22:13 | Electrocardiogram Report ---
Test Reason : Blood Pressure : */* mmHG Vent. Rate : 70 BPM Atrial Rate : 70 BPM P-R Int : 210 ms QRS Dur : 116 ms QT Int : 438 ms P-R-T Axes : 60 49 79 degrees QTcB Int : 473 ms Sinus rhythm with 1st degree A-V block Possible Left atrial enlargement Incomplete right bundle branch block Nonspecific T wave abnormality When compared with ECG of 20-Feb-2025 14:59, Nonspecific T wave abnormality now evident in Lateral leads Confirmed by Eleno Leong ([id number]) on 04/10/2025 10:13:02 PM Referred By: Shae Babcock Confirmed By: Eleno Leong
[2025-04-11] MEDS: CeleBREX 200 MG CAP PO ONE (03:42)
[2025-04-11 06:45] LABS: Hematocrit (blood only) 30.4 % (37.0-47.0); Hemoglobin 11.0 g/dL (12.0-16.0); Immature Granulocytes # (auto) 0.09 K/uL (0.01-0.20); Immature Granulocytes % (auto) 1.0 %; Mean Corpuscular Hemoglobin 30.8 pg (25.0-34.0); Mean Corpuscular Volume 85.2 fL (80.0-100.0); Platelet Count 195 K/uL (130-400); RDW Standard Deviation 44.8 fL (36.4-46.3); Red Blood Count 3.57 M/uL (4.20-5.40); White Blood Count 8.87 K/ul (4.8-10.8)
[2025-04-11 07:12] LABS: Albumin Level 3.2 gm/dl (3.4-5.0); Anion Gap 9.0 (3-11); Blood Urea Nitrogen 24.0 mg/dl (6-23); Calcium 8.9 mg/dl (8.6-10.3); Carbon Dioxide 23.0 mmol/L (21-32); Chloride 101.0 mmol/L (98-107); Creatinine Clr Calc Pharmacy 45.8 ml/min; Glucose 86.0 mg/dl (70-99(Fasting)); Potassium 3.6 mmol/L (3.5-5.1); Sodium 133.0 mmol/L (136-145)
--- NOTE | 2025-04-11 08:02 | Hospitalist Progress Note ---
Date of Service April 11, 2025 Assessment & Plan (1) Cellulitis of left lower extremity: (2) Rigors: (3) Acute kidney injury: (4) Hypokalemia: (5) Hyponatremia with decreased serum osmolality: Plan In summary this is a 74-year-old female who presents for rigors and general bahman ise found to have left lower extremity cellulitis with an associated acute kidney injury #Left lower extremity cellulitis // Rigors Presents with a maculopapular rash with erythema and is tender to palpation with increasing radiating heat compared to the right lower extremity; not consistent with erysipelas nor is or evidence of carbuncle or furuncle formation; most likely consequential with streptococcal species based on its appearance, there are multiple sites of potential bacterial access from previous blistering wounds that were apparently sustained in the postoperative period with some epidermal sloughing; noted orthopedic consultation and opinion regarding rash, at this time the patient has no other source of infection and one would expect a symmetric contact reaction if truly from their compression stockings and she has no symptoms typical of an allergic skin reaction; noted fever overnight 11/20 within first 12 hours of antibiotic administration, not indicative of antibiotic failure Continue ceftriaxone 2 g IV daily; chosen for the patient's lack of risk for MRSA, non-purulent cellulitis, hemodynamic stability, and anaphylaxis with PCN Blood cultures without growth at 24 hours Follow daily CBC with manual differential and renal function panel #Acute kidney injury, prerenal Presenting creatinine of 1.44 (baseline 0.9); trend 1.30, 0.98; currently nonoliguric and without recent hypotensive period or comorbid heart failure; prescribed celecoxib chronically for management of osteoarthritis; suspect most likely to be prerenal given presenting associated infection and rigors with insensible losses from fever -Vital signs every shift -Nurse to notify attending of UOP below goal of 0.5 mL/kg/hour -Intake and output measures every shift -Follow daily RFP Continue with maintenance IV fluids - Hold Losartan and HCTZ/Triamterene #Hyponatremia with decreased serum osmolality Serum sodium at presentation 130; improved to 132; prescribed triamterene hydrochlorothiazide in the outpatient setting; calculated serum osmolarity of 279; suspect this is likely a consequence of the patient's diminished oral intake over the past several days, iatrogenic fluid loss of the setting of borderline fevers and rigors, in addition to continued use of combination antihypertensive triamterene-hydrochlorothiazide - Intake and output measure every shift - Follow daily RFP Hold triamterene-hydrochlorothiazide at this time Admission and Anticipated Discharge Date Admission Date: April 09, 2025 Subjective Ms. Khan is a 74-year-old female whose active medical conditions include Severe premature ventricular contractions, gastroesophageal reflux disease, acquired hypothyroidism among other chronic medical conditions who presented to the [facility] due to progressive chills and malaise over the past 4 to 5 days with development of a left lower extremity rash on the day of presentation. No acute overnight events; bowel movements have become more normal for the patient after starting probiotic therapy Results & Data Results & Data Vital Signs (Past 12 Hours) Vital Signs Temp Pulse Resp BP Pulse Ox O2 Del Method 04/11/25 02:22 36.6 C 73 16 174/82 H 93 Room Air 04/10/25 23:47 37.1 C 04/10/25 22:23 36.8 C 74 18 138/72 98 Room Air PG Care Time/CCT Total # of Minutes Spent Total Time Spent with Patient: Total time spent is greater than 50% in coordination of care (as documented) at patient's floor/unit and/or counseling patient: Coding Diagnoses Cellulitis of left lower extremity L03.116 Rigors R68.89 Acute kidney injury N17.9 Hypokalemia E87.6 Hyponatremia with decreased serum osmolality E87.1
--- NOTE | 2025-04-11 09:02 | Orthopedic Progress Note ---
Date of Service April 11, 2025 Assessment & Plan (1) Status post left knee replacement: (2) Cellulitis of left lower extremity: Plan * Continue Current Treatment * Cellulitis vs sensitivity reaction, responding well to antibiotics. I think it is worth a trial of some hydrocortisone/steroid as this rash seems to be more reactionary than infectious to me. * No concern for PJI * Recommend continued abx therapy. Considering the history, recent surgery, and response since admission I think we need to continue the antibiotics for a period of time anywhere from 10 to 14 days. * Weight bearing status: full activity as tolerated * Daily treatment: Physical Therapy/ Occupational Therapy per protocol * Pain control * DVT prophylaxis per primary team * Disposition: Home * F/u as scheduled with Dr Bull team * Remainder care per primary team * Stable for discharge from ortho standpoin Subjective . Active Problems: S/p L TKA, LLE cellulitis vs sensitivity reaction 74 y/o female s/p L TKA with new onset LLE rash/cellulitis. Doing well overall, pain managed and improved function. Denies pain or limitations to Left knee movement/activity. LLE rash significantly improved overnight. Denies fever/chills, chest pain/SOB, nausea/vomiting. Otherwise no complaints. Review of Systems All systems reviewed & are unremarkable except as noted in HPI & below. Physical Exam . * General: Alert and oriented, no acute distress * Constitutional: well-developed, well-nourished. * Respiratory: Normal respiratory effort, no distress * Gastrointestinal: No tenderness to palpation, no rigidity or guarding. * Skin: No rash or lesion. * Neurologic: Grossly normal * Musculoskeletal: Well healed left TKA incision with no local erythema, indura tion, or drainage. Faint widespread erythema from foot to upper thigh. No TTP distal thigh and knee region. Otherwise no specific tenderness of proximal thigh, lower leg, foot/ankle. AROM knee flexion 120 degrees, no pain. AROM foot/ankle intact. Sensation intact plantar/dorsal foot. Brisk capillary refill. Results & Data Results & Data Laboratory Results . Diagnostic Findings . PG Care Time/CCT Total # of Minutes Spent Total Time Spent with Patient: Total time spent is greater than 50% in coordination of care (as documented) at patient's floor/unit and/or counseling patient: Coding Level of Care Code 68061 Post Operative Follow-Up Diagnoses Status post left knee replacement Z96.652 Cellulitis of left lower extremity L03.116
[2025-04-11 09:28] VITALS: O2SAT 98
[2025-04-11 13:29] VITALS: RESP 17; TEMP 97.7
[2025-04-11] MEDS: INFLUENZA VACC TS2025-26(65y+)/PF (IIV3) 0.5mL Syr IM ONE (15:26)
--- NOTE | 2025-04-11 15:58 | Discharge Summary ---
Discharge Summary Date of Service April 11, 2025 Principal Dx & Hospital Course #1 = Principal Diagnosis (1) Cellulitis of left lower extremity: (2) Rigors: (3) Acute kidney injury: (4) Hypokalemia: (5) Hyponatremia with decreased serum osmolality: Plan In summary this is a 74-year-old female who presented with rigors and general malaise found to have left lower extremity cellulitis with an associated acute kidney injury #Left lower extremity cellulitis // Rigors Presented with an erythematous maculopapular rash with increased heat compared to the right lower extremity; not consistent with erysipelas nor was there evidence of carbuncle or furuncle formation; most likely consequential with streptococcal species based on its appearance, there are multiple sites of potential bacterial access from previous blistering wounds that were apparently sustained in the postoperative period with some epidermal sloughing; noted orthopedic consultation and opinion regarding rash, agree this is not a postoperative complication; the rash has significantly improved in the past 48 hours with antibiotic therapy, with residual hyperpigmentation that will likely continue to resolve Continue cephalexin 500 mg p.o. every 6 hours through 04/19 Blood cultures without growth at 48 hours - Per patient request, Lyme DNA PCR ordered and pending at discharge #Acute kidney injury, prerenal Presenting creatinine of 1.44 (baseline 0.9); resolved at the time of discharge; prescribed celecoxib chronically for management of osteoarthritis with additional twice daily ASA for DVT prophylaxis postoperatively; suspect most likely to be prerenal given presenting associated infection and rigors with insensible losses from fever - Resolved at discharge - Resume Losartan and HCTZ/Triamterene at discharge #Hyponatremia with decreased serum osmolality Serum sodium at presentation 130; resolved at time of discharge; suspect this is likely a consequence of the patient's diminished oral intake over the past several days, iatrogenic fluid loss of the setting of borderline fevers and rigors, in addition to continued use of combination antihypertensive tria mterene-hydrochlorothiazide Resume triamterene-hydrochlorothiazide at discharge Admission HPI Per Admitting Provider Ms. Khan is a 74-year-old female whose active medical conditions include Severe premature ventricular contractions, gastroesophageal reflux disease, acquired hypothyroidism among other chronic medical conditions who presented to the [facility] due to progressive chills and malaise over the past 4 to 5 days with development of a left lower extremity rash on the day of presentation. The patient describes beginning on 04/04 the began to experience intermittent episodes of chills with rigors without associated measurable fever; these episodes have become more frequent over the subsequent days and she has developed an increasing sense of malaise. On the day of presentation, the patient was seen by their primary care provider due to the symptoms, found to have a large left lower extremity rash with radiating heat and was referred to the emergency department for further evaluation. At the time my evaluation the patient denies any fever, chills, nausea, vomiting, left lower extremity pain, new or progressive lower extremity edema, shortness of breath, dyspnea, orthopnea, cough, abdominal pain, complications or new pain related to their left knee TKA that was recently performed in 02/2025. Discharge Exam General: Elderly female in no acute distress Vital Signs: Reviewed HEENT: Moist mucous membranes; pupils equally round and reactive to light; extraocular motions intact Pulmonary: Symmetric chest wall excursion without restriction; comfortable respirations; clear to auscultation bilaterally Cardiovascular: Regular rate and rhythm with grade 2/6 systolic murmur best heard in the right second intercostal space parasternally; no rubs or gallops; S1 and S2 normal; left radial pulse 2+; no notable lower extremity edema Gastrointestinal: Soft, nontender Musculoskeletal: Surgical site involving the left knee appears well, no surgical site dehiscence, nor effusion; range of motion is restricted as expected in the postoperative phase however does not cause any discomfort Neurologic: Cranial nerves II through XII grossly intact; no discernible focal weakness nor paresthesia Skin: remains with significantly improved left lower extremity maculopapular rash, no longer erythematous Discharge Plan Discharge Items Patient Disposition: Home - Self-Care Reason For Visit: ACUTE KIDNEY INJURY/CELLULITIS Discharge Diagnosis: Left lower extremity cellulitis // Acute kidney injury Condition on Discharge: Fair Activity: Per Instructions section Non-emergency contact: Primary Care Provider Call non-emergency contact if: you have any medication questions, your symptoms worsen and your temperature is above 101 Follow-up/Referrals: Shae Babcock MD [Primary Care Provider] - Diet: Low Fat Fluids: 2000ml (8 cups) Addtl Attending Provider Instructions: You were admitted to [facility] for left lower extremity cellulitis with an associated acute kidney injury With regard to your cellulitis, it has precipitously improved with regular antibiotic treatment. Blood cultures are without growth at 48 hours making it very unlikely that there is a component of bacteremia though they will continue to be followed through total of 5 days. We will continue antibiotics wit cephalexin 500 mg p.o. 4 times daiy through 04/18 for a total 10 day course. During this time, we recommend regular use of a probiotic or consuming low-fat ecuadorean yogurt daily to reduce the risk of gastrointestinal complications and adverse effects from antibiotic therapy. At your request, a Lyme antibody titer has been ordered and is pending at the time of your discharge. You were also found to have an acute kidney injury at the time of admission, likely consequential of your associated infection and insensible fluid loss from fevers. This may also have been related to care home use of NSAIDs, with additional aspirin use from your recent surgery. At the time of discharge, this issue has resolved and you can continue your previously prescribed medications. Thank you for choosing [facility] as your healthcare provider. Pending Studies at Discharge: Yes (Lyme antibody titer) Stand-Alone Forms: My [facility] Medications and DC Order Prescriptions: New cephalexin 500 mg capsule 500 mg PO Q6H 8 Days Qty: 32 0RF Continued oxycodone 5 mg tablet 5 - 10 mg PO Q6 PRN (Reason: pain) Qty: 40 0RF Rx Instructions: Take as needed for pain pravastatin 20 mg tablet 20 mg PO QAM levothyroxine 137 mcg capsule 137 mcg PO QAM polyethylene glycol 3350 [Miralax] 17 gram/dose powder 17 g PO QAM Breo Ellipta 200-25 mcg/dose blister with device 1 inh inhalation QAM esomeprazole magnesium [Nexium] 20 mg capsule,delayed release(DR/EC) 20 mg PO DAILYBB celecoxib [Celebrex] 100 mg capsule 100 mg PO BID Qty: 60 1RF Rx Instructions: Take 1 capsule by mouth twice daily for postoperative pain. losartan 50 mg Tablet 50 mg PO BID flecainide 150 mg Tablet 75 mg PO BID Rx Instructions: 1/2 tablet dose diltiazem HCl 360 mg Capsule,Extended Release 24hr 360 mg PO QAM triamterene-hydrochlorothiazid 75-50 mg tablet 1 tab PO QAM acetaminophen 500 mg Tablet 1,000 mg PO QID docusate sodium 100 mg Capsule 400 mg PO Q OTHER DAY Rx Instructions: alternate with 300mg dose One-A-Day Women's 50 Plus 400 mcg-500 mg calcium-20 mcg Tablet 1 tab PO QAM metoprolol succinate 25 mg Tablet Extended Release 24 Hr 25 mg PO QAM docusate sodium [Stool Softener] 100 mg Capsule 300 mg PO Q OTHER DAY Rx Instructions: alternate with 400mg dose albuterol sulfate 90 mcg/actuation HFA aerosol inhaler 2 puff INHALATION QID PRN (Reason: Shortness Of Breath Or Wheezing) Held ondansetron 4 mg tablet,disintegrating 4 mg PO Q8 PRN (Reason: nausea) Qty: 20 1RF Hold Instructions: Resume on 04/18/25. Rx Instructions: Take as needed for nausea cephalexin 500 mg capsule 2,000 mg PO UD PRN (Reason: dental procedures) Hold Instructions: Resume on 04/18/25. Rx Instructions: 4 capsule by mouth before dental procedure Discontinued aspirin [Jaquan Low Dose Aspirin] 81 mg tablet,delayed release (DR/EC) 81 mg PO BID 45 Days Qty: 90 0RF Rx Instructions: Take to prevent blood clots. Discharge Orders: Discharge Order (Routine); Ordered 04/11/25 Ordered By: Edd Garner Admission Data Admit Date/Time: 04/09/25 16:50 Attending Provider: Edd Garner Admit Provider: Edd Garner Primary Care Provider: Shae Babcock Other Providers: Edd Garner Hospital Stay Data Consultations 04/09/25 16:46 ED Decision to Admit Stat Diagnostic Imagining Performed 04/09/25 13:29 US leg [US venous doppler LE LT] Stat Pending Results Patient Have Any Pending Studies at Discharge: Yes (Lyme antibody titer) Discharge Instructions Given to Patient (Per Discharging Provider) You were admitted to [facility] for left lower extremity cellulitis with an associated acute kidney injury With regard to your cellulitis, it has precipitously improved with regular antibiotic treatment. Blood cultures are without growth at 48 hours making it very unlikely that there is a component of bacteremia though they will continue to be followed through total of 5 days. We will continue antibiotics wit cephalexin 500 mg p.o. 4 times daiy through 04/18 for a total 10 day course. During this time, we recommend regular use of a probiotic or consuming low-fat ecuadorean yogurt daily to reduce the risk of gastrointestinal complications and adverse effects from antibiotic therapy. At your request, a Lyme antibody titer has been ordered and is pending at the time of your discharge. You were also found to have an acute kidney injury at the time of admission, likely consequential of your associated infection and insensible fluid loss from fevers. This may also have been related to care home use of NSAIDs, with additional aspirin use from your recent surgery. At the time of discharge, this issue has resolved and you can continue your previously prescribed medications. Thank you for choosing [facility] as your healthcare provider. Total Time Total Time Spent Total Time Spent (In Minutes): I personally spent 75 minutes in the coordination of today's discharge including bedside counselling, physical exam, medication reconciliation Coding Level of Care Code 06157 INP/OBS DISCH >30 MIN Diagnoses Cellulitis of left lower extremity L03.116 Rigors R68.89 Acute kidney injury N17.9 Hypokalemia E87.6 Hyponatremia with decreased serum osmolality E87.1
[2025-04-11 16:28] VITALS: BP 168/83; PULSE 76
== END 2025-04-11 17:09 | disposition home health service (06) | DRG 603 ==
LOC: ED 12:16 → EDINP 16:50 → 3N 20:44